=== PATIENT | female | born 2000 | race Caucasian/White ===

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

== ENCOUNTER → 2021-01-04 10:42 | Outpatient (BNVA) | payer OTHER, SELFPAY | PROVIDERS: PCP Family Medicine; Visit Provider Surgery | DX: Z20.822 Contact with and (suspected) exposure to COVID-19 (principal); K81.1 Chronic cholecystitis; R10.11 Right upper quadrant pain | CPT/HCPCS: 87635 ==

== ENCOUNTER 2021-01-09 09:16 | Day surgery (SDC) | payer MEDICAID, SELFPAY ==
[2021-01-08 11:57] VITALS: BMI 31.9
[2021-01-09] VITALS (7 sets, daily range): BP systolic 117–151; BP diastolic 73–99; PULSE 76–101; RESP 16–20; TEMP 36.1–36.8; O2SAT 97–100
--- NOTE | 2021-01-09 09:29 | W.PM.OPSUD ---
Surgery/Procedure H&P Update DATE OF PROCEDURE: January 09, 2021 DATE H&P PERFORMED: 01/01/21 H&P UPDATE INFORMATION: I have reviewed H&P completed within last 30 days, I have examined patient prior to procedure and No changes to prior documentation PREOP DIAGNOSIS: upper gi symptoms PLANNED PROCEDURE: Operation Date: 01/09/21 13:00 Proposed Procedures p Laparoscopic Cholecystectomy [id number] 10412 R10.11 K81.1(Not Applicable) - Sathya Arias MD s EGD(Not Applicable) - Sathya Arias MD
[2021-01-09 09:35] LABS: OR HCG Qualitative Urine Negative (Negative)
--- NOTE | 2021-01-09 10:06 | P.ANESASSM_ITS ---
Pre-Anesthetic Assessment Pre-Anesthetic Assessment: Height/Weight: Height 1.63 m Weight 84.368 kg Temp Pulse Resp BP Pulse Ox 98.2 F 82 18 118/73 98 01/09/21 09:41 01/09/21 09:41 01/09/21 09:41 01/09/21 09:41 01/09/21 09:41 Preop Diagnosis: upper gi symptoms Proposed Procedure: Operation Date: 01/09/21 13:00 Proposed Procedures p Laparoscopic Cholecystectomy 70188 [id number] R10.11 K81.1(Not Applicable) - Sathya Arias MD s EGD(Not Applicable) - Sathya Arias MD Was Beta Savita taken within 24 hours: N/A Was Clonidine taken within 24 hours: N/A Social: Social History: Tobacco and No alcohol Exam: Pre-Anes Outpt Exam: alert, oriented x 3, clear to auscultation bilaterally and regular rate & rhythm Airway: Submandibular: WNL Cervical ROM: WNL MP: 2 Dentition: Full Pulmonary: Pulmonary: Asthma Musc/skel: Musc/skel: Lower Back Pain Neuropsych: Neuropsych: Anxiety and Depression Anesthetic Plan: ASA status: 2 Anesthesia: General Risk of > 500 ml blood loss (7ml/kg in children): No PFSH Anesthesia PFSH: Medical History Asthma Surgical History (Updated 01/09/21 @ 09:42 by Sathya Arias MD) H/O esophagogastroduodenoscopy (01/09/21) History of appendectomy History of tonsillectomy Status post laparoscopic cholecystectomy (01/09/21) Family History Father Cancer Unknown Mother Hypertension Denies family history of CAD (coronary artery disease) Clotting disorder Dementia Hyperlipidemia Chronic kidney disease (CKD) Bleeding disorder Stroke Social History Smoking and tobacco status: current every day smoker (uses a vape pen) e- cigarettes Current gender identity: Female Female Reproductive History: Date of last menstrual period: 10/18/20 Data Anesthesia Other Labs: Laboratory Results - last 48 hr 01/09/21 09:29 Urine HCG, Qual Negative Cardiac Studies: No Data to Display
--- NOTE | 2021-01-09 10:13 | P.ANESASSM_ITS ---
Pre-Anesthetic Assessment Pre-Anesthetic Assessment: Height/Weight: Height 1.63 m Weight 84.368 kg Temp Pulse Resp BP Pulse Ox 98.2 F 82 18 118/73 98 01/09/21 09:41 01/09/21 09:41 01/09/21 09:41 01/09/21 09:41 01/09/21 09:41 Preop Diagnosis: upper gi symptoms Proposed Procedure: Operation Date: 01/09/21 13:00 Proposed Procedures p Laparoscopic Cholecystectomy [id number] R10.11 K81.1(Not Applicable) - Sathya Arias MD s EGD(Not Applicable) - Sathya Arias MD Was Beta Savita taken within 24 hours: N/A Was Clonidine taken within 24 hours: N/A Social: Social History: No alcohol and No tobacco Packs per day: Vaps Exam: Pre-Anes Outpt Exam: alert, oriented x 3, clear to auscultation bila terally and regular rate & rhythm Airway: Submandibular: WNL Cervical ROM: WNL MP: 2 Dentition: Full History/ROS: No significant history except as noted and No significant complaints Pulmonary: Pulmonary: Asthma CV/HEM: CV/HEM: None reported : : None reported Hepatic: Hepatic: None reported GI: GI: GERD Metabolic: Metabolic: None reported Musc/skel: Musc/skel: None reported Neuropsych: Neuropsych: None reported Anesthetic Plan: ASA status: 2 Anesthesia: Anesthesia Evaluation and General Risk of > 500 ml blood loss (7ml/kg in children): No PFSH Anesthesia PFSH: Medical History Asthma Surgical History (Updated 01/09/21 @ 09:42 by Sathya Arias MD) H/O esophagogastroduodenoscopy (01/09/21) History of appendectomy History of tonsillectomy Status post laparoscopic cholecystectomy (01/09/21) Family History Father Cancer Unknown Mother Hypertension Denies family history of CAD (coronary artery disease) Clotting disorder Dementia Hyperlipidemia Chronic kidney disease (CKD) Bleeding disorder Stroke Social History Smoking and tobacco status: current every day smoker (uses a vape pen) e- cigarettes Current gender identity: Female Female Reproductive History: Date of last menstrual period: 10/18/20 Data Anesthesia Other Labs: Laboratory Results - last 48 hr 01/09/21 09:29 Urine HCG, Qual Negative Cardiac Studies: No Data to Display
[2021-01-09] MEDS: sodium chloride 0.9% 1,000 ML 30 ML IV (10:23)
[2021-01-09] MEDS: diphenhydrAMINE 50 mg/mL SDV 1mL 12.5 MG IVP (10:40)
[2021-01-09] MEDS: levofloxacin-dextrose 5 % 500 MG/100 ML PREMIX 100 MG IV (10:40)
[2021-01-09] MEDS: scopolamine 1.5 Patch 1 PATCH TRANSDERMA (10:40)
[2021-01-09] MEDS: ondansetron 2 mg/ML SDV 2 mL 4 MG IVP ×3 (10:45→12:35)
--- NOTE | 2021-01-09 11:30 | PM.OP ---
Operative Report Date of procedure: January 09, 2021 Pre-op Diagnosis: Chronic cholecystitis Post-op Diagnosis: Chronic cholecystitis Normal EGD Procedure Done: Esophagogastroduodenoscopy without biopsy Laparoscopic cholecystectomy Specimens removed/disposition: Gallbladder Surgeon: Sathya Arias Anesthesia: General Condition: stable Disposition: PACU Procedure: The patient was taken to the operating room and placed in supine position under general anesthesia and a bite block was placed. A gastroscope was introduced and advanced up to second portion of the duodenum and slowly withdrawn. Duodenum second portion: Normal Duodenal bulb: Normal Stomach Fundus: Normal body: Normal Antrum: Normal Pylorus: Normal Esophagus GE junction: Normal at 40 cm Rest of esophagus: Normal After the antibiotic had been administered, the abdomen was prepped and draped in a sterile manner. Using a #15 blade, a 1 centimeter infraumbilical curvilinear incision was made and using an open Bro technique the peritoneal cavity was entered. A 10 millimeter port was placed and 15 millimeters of pneumoperitoneum was created. A 10 millimeter, 30 degrees scope was then introduced. Three 5 millimeter ports were placed in the epigastric, midclavicular and the anterior axillary line two fingerbreadths below the costal margin on the right side under the direct visualization. Ratcheted forceps were introduced into the lateral most port and was used to retract the fundus of the gallbladder cephalad and using forceps the infundibulum of the gallbladder was retracted laterally. The stomach was adherent to the body of the gallbladder and this was taken down using electrocautery. Using L-hook cautery the peritoneum overlying the Calot's triangle was opened medially and laterally until the cystic duct and the cystic artery were skeletonized. Dissection was carried along the body of the gallbladder and after ensuring critical view of safety, 4 clips applied on the cystic duct and 3 clips applied on the cystic artery and cut leaving, 3 clips on the remaining portion of the duct and 2 clips on the remaining portion of the artery. The rest of the gallbladder was dissected off the liver using L-hook cautery. There was no bleeding or bile leaking noted from the gallbladder fossa and the clips appeared to be in place. An EndoCatch bag was introduced to remove the gallbladder. All the ports were removed under direct visualization and there was no bleeding noted from the port sites. The fascia of the umbilicus was closed using [id number] 0 Vicryl sutures and the subcutaneous tissue was approximated using 3-0 Vicryl sutures. The skin at all four ports were closed using 4-0 Monocryl and Dermabond. A total of 10 millimeters of 0.5% Marcaine was infiltrated around the port sites. The patient was stable throughout the procedure.
[2021-01-09] MEDS: fentaNYL 50 mcg/mL INJ 2mL IVP ×2 (11:55→12:00)
[2021-01-09] MEDS: diphenhydrAMINE 50 mg/mL SDV 1mL (12:54)
--- NOTE | 2021-01-09 14:02 | ANE.PACU2 ---
Inpatient post-anesthesia follow up: Airway intact: Yes Vital signs: Temperature 98.0 F Pulse Rate 80 Respiratory Rate 16 Blood Pressure 132/77 Pulse Oximetry 100 Oxygen Delivery Me thod Room Air Oxygen Flow Rate Fraction of Inspir ed Oxygen Hydration adequate: Yes Nausea and vomiting: Yes Pain level: 2 Mental status: Baseline
== END 2021-01-09 13:20 | disposition home or self-care (01) ==
PROVIDERS: Anesthesiology; PCP Family Medicine; Visit Provider Surgery
PROC: 0FT44ZZ Resection of Gallbladder, Percutaneous Endoscopic Approach (ICD-10-PCS; CPT 47562; principal; 2021-01-09 12:50)
PROC: 0DJ08ZZ Inspection of Upper Intestinal Tract, Via Natural or Artificial Opening Endoscopic (ICD-10-PCS; CPT 43235; 2021-01-09 12:50)
DX: K81.1 Chronic cholecystitis (principal); J45.909 Unspecified asthma, uncomplicated
CPT/HCPCS: 43235; 47562; 81025; 84703; 88304; 96374; 96375; J1100; J1200; J1956; J2405; J2704; J2710; J3010; J3490; J7030

== ENCOUNTER 2021-01-11 08:53 | Emergency (ER) | payer MEDICAID, SELFPAY ==
[2021-01-11 08:59] VITALS: BP 118/81; PULSE 76; RESP 18; TEMP 36.8; O2SAT 100; BMI 32.1
--- NOTE | 2021-01-11 09:14 | ECG_ITS ---
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
--- NOTE | 2021-01-11 09:18 | ED_ITS ---
HPI - General Adult General: Chief complaint: General Medical Stated complaint: CP, Trouble breathing & urinating, recent surgery Time Seen by Provider: 01/11/21 09:02 History of Present Illness: HPI narrative: 19-year-old female presents to the emergency room complaining of abdominal pain and discomfort. She is having some nausea and some moderate incisional pain. She has had some mild dysuria she not had any fever. No vomiting or diarrhea but has been very nauseous. She has some pain in the right upper quadrant radiating to the right shoulder. Onset (ago): day(s) Location: abdomen Radiation: other (Right shoulder) Severity: mild Pain Consistency: constant Relieving factors: none Exacerbating factors: none Associated symptoms: Reports decreased appetite; Deny chest pain, confusion, cough, diaphoresis, dyspnea, fevers/chills, headache(s), malaise, nausea, rash, palpitations, seizures, short of breath, syncope, vomiting or weakness Treatments prior to arrival: none Review of Systems Const: Denies: malaise or diaphoresis ENMT: Denies: throat pain, ear or mastoid pain, nasal discharge or nasal congestion Card: Denies: chest pain, palpitations or syncope Resp: Denies: dyspnea GI: Denies: nausea or vomiting : Denies: flank pain, difficulty voiding, dysuria, urinary frequency or urinary urgency Skin/Breast: Denies: rash Neuro: Denies: headache(s) or confusion [facility], [facility] ED PFSH: Medical History Asthma Surgical History H/O esophagogastroduodenoscopy (01/09/21) History of appendectomy History of tonsillectomy Status post laparoscopic cholecystectomy (01/09/21) Family History Father Cancer Unknown Mother Hypertension Denies family history of CAD (coronary artery disease) Clotting disorder Dementia Hyperlipidemia Chronic kidney disease (CKD) Bleeding disorder Stroke Social History Smoking and tobacco status: current every day smoker (uses a vape pen) e- cigarettes Current gender identity: Female Female Reproductive History: Date of last menstrual period: 10/18/20 Physical Exam Const: COMMON NORMALS: no acute distress GENERAL APPEARANCE: cooperative and comfortable ORIENTATION/CONSCIOUSNESS: Yes awake, Yes oriented to person, Yes oriented to place and Yes oriented to time HENMT: COMMON NORMALS: normocephalic, atraumatic and hearing grossly normal bilaterally HEAD & SCALP: normocephalic and atraumatic Neck/C-Spine: COMMON NORMALS: no JVD Resp: COMMON NORMALS: normal respiratory effort, No retractions, No use of accessory muscles and clear to auscultation bilaterally AUSCULTATION: clear to auscultation bilaterally Cardio: COMMON NORMALS: no JVD, regular rate, regular rhythm and No murmurs present (Cardio) RATE: regular rate RHYTHM: regular rhythm GI: COMMON NORMALS: Soft to palpation and No hepatosplenomegaly present AUSCULTATION: Yes normoactive bowel sounds PALPATION: Yes Soft to palpation, No Tenderness to palpation present (GI), No Guarding due to palpation present (GI) and Yes No hepatosplenomegaly present Extremity: COMMON NORMALS: normal to inspection, capillary refill normal, no clubbing, cyanosis or edema, no calf tenderness and no pedal edema Neuro: SENSORIUM/ORIENTATION: Yes oriented to person, Yes oriented to place and Yes oriented to time Skin: COMMON NORMALS: no rashes or lesions noted GENERAL SKIN EXAM: no rashes or lesions noted Course Vital Signs: Vital signs: Vital Signs Temperature 98.3 F 01/11/21 08:59 Pulse Rate 68 01/11/21 11:40 Respiratory Rate 14 01/11/21 11:40 Blood Pressure 113/58 01/11/21 11:40 Pulse Oximetry 100 01/11/21 11:40 MDM - General Adult MDM Narrative: Medical decision making narrative: Believe the patient is having symptoms largely related to her surgery some food probably gas trapped in the abdomen yet some of it may be postcholecystectomy syndrome she has no peritoneal signs she does have a mild cystitis we will discharge her home clear liquid diet use pain medications nausea medications previously prescribed started on ciprofloxacin for her cystitis follow-up with Dr. Arias within the next week cold discussed Dr. Arias as well. Lab Data: Labs: Lab Results 01/11/21 01/11/21 01/11/21 09:38 09:38 09:38 WBC 10.0 10^3/uL 10^3 /uL (4.5-13.0) RBC 4.61 10^6/uL 10^6 /uL (4.1-5.3) Hgb 13.2 g/dL g/dL (11.5-15.3) Hct 40.0 % % (37.0-47.0) MCV 86.8 fl fl (81-99) MCH 28.6 pg pg (28.0-34.0) MCHC 33.0 g/dL g/dL (30.0-36.0) RDW 12.0 % L % (12.1-15.1) Plt Count 202 10^3/cmm 10^3 /cmm (130-400) MPV 11.5 fL H fL (7.4-10.4) Neut % (Auto) 61.5 % % Lymph % (Auto) 32.9 % % Jerome % (Auto) 4.6 % % Eos % (Auto) 0.5 % % Baso % (Auto) 0.3 % % Neut # (Auto) 6.12 10^3/uL 10^3 /uL (1.8-8.0) Lymph # (Auto) 3.3 10^3/uL 10^3/ uL (1.5-6.5) Jerome # (Auto) 0.5 10^3/uL 10^3/ uL (0.2-0.9) Eos # (Auto) 0.1 10^3/uL 10^3/ uL (0.0-0.8) Baso # (Auto) 0.0 10^3/uL 10^3/ uL (0.0-0.1) Nucleated RBC % (a uto) 0 % % Nucleated RBCs # 0.0 /100WBC /100W BC Sodium 139 mmol/L mmol/L (136-145) Potassium 3.8 mmol/L mmol/L (3.5-5.1) Chloride 103 mmol/L mmol/L (98-107) Carbon Dioxide 26 mmol/L mmol/L (22-29) Anion Gap 13.8 (5-19) BUN 8 mg/dL mg/dL (6-20) Creatinine 0.6 mg/dL mg/dL (0.5-0.9) GFR Calculation 128.8 mL/min mL/m in (90-130) Glucose 77 mg/dL mg/dL (65-115) Calculated Osmolal ity 285 mOsm/kg mOsm/ kg (285-295) Lactic Acid 1.1 mmol/L mmol/L (0.5-2.2) Calcium 9.2 mg/dL mg/dL (8.5-10.5) Total Bilirubin 0.7 mg/dL mg/dL (0.15-1.2) AST 33 U/L H U/L (0-32) ALT 46 U/L H U/L (0-33) Alkaline Phosphata se 104 IU/L IU/L (35-105) Total Protein 7.3 g/dL g/dL (6.6-8.7) Albumin 4.3 g/dL g/dL (3.5-5.2) Globulin 3.0 g/dL g/dL (1.3-4.6) Lipase 16 U/L U/L (13-60) Urine Color Urine Appearance Urine pH Ur Specific Gravit y Urine Protein Urine Glucose (UA) Urine Ketones Urine Blood Urine Nitrate Urine Bilirubin Urine Urobilinogen Ur Leukocyte Nan [place]se Urine RBC Urine WBC Ur Squamous Epith Cells Amorphous Sediment Urine Bacteria Urine Mucus 01/11/21 09:38 WBC RBC Hgb Hct MCV MCH MCHC RDW Plt Count MPV Neut % (Auto) Lymph % (Auto) Jerome % (Auto) Eos % (Auto) Baso % (Auto) Neut # (Auto) Lymph # (Auto) Jerome # (Auto) Eos # (Auto) Baso # (Auto) Nucleated RBC % (a uto) Nucleated RBCs # Sodium Potassium Chloride Carbon Dioxide Anion Gap BUN Creatinine GFR Calculation Glucose Calculated Osmolal ity Lactic Acid Calcium Total Bilirubin AST ALT Alkaline Phosphata se Total Protein Albumin Globulin Lipase Urine Color Yellow (Yellow) Urine Appearance Hazy A (CLEAR) Urine pH 5 (5-7) Ur Specific Gravit y 1.015 (1.005-1.030) Urine Protein Neg (Negative) Urine Glucose (UA) Norm (Normal) Urine Ketones Negative (Negative) Urine Blood Neg (Negative) Urine Nitrate Negative (Negative) Urine Bilirubin Neg (Negative) Urine Urobilinogen 1 mg/dL H mg/dL (Negative) Ur Leukocyte [place] 1+ H (Negative) Urine RBC 0-4 /hpf H /hpf (0-2) Urine WBC 15-25 /hpf H /hpf (0-5) Ur Squamous Epith Cells 25-40 /hpf H /hpf (0-5) Amorphous Sediment Not Reportable Urine Bacteria 2+ /hpf H /hpf (NONE) Urine Mucus Trace /hpf /hpf Discharge Plan Discharge Patient Disposition: Home Clinical Impression: Post-cholecystectomy syndrome, Cystitis Condition: Stable Prescriptions: New ciprofloxacin HCl 500 mg tablet 500 mg PO BID Qty: 14 RF: 0 No Action albuterol sulfate [Ventolin HFA] 90 mcg/actuation HFA aerosol inhaler 2 puff inhalation Q6H PRN (Reason: shortness of breath or wheezing) Qty: 6.7 RF: 0 buspirone 5 mg tablet 5 mg PO TID Qty: 90 RF: 0 tizanidine 2 mg tablet 2 mg PO BID PRN (Reason: muscle spasticity) Qty: 60 RF: 0 sertraline 50 mg tablet 50 mg PO DAILY Qty: 30 RF: 0 acetaminophen [Tylenol] 325 mg Tablet 325 - 650 mg PO QID PRN (Reason: Pain) RF: 0 Zofran 4 mg tablet 4 mg PO Q6H PRN (Reason: nausea and vomiting) Qty: 20 RF: 0 Colace 100 mg capsule 100 mg PO BID Qty: 30 RF: 0 hydrocodone-acetaminophen 5-325 mg tablet 1 tab PO Q6H PRN (Reason: pain) Qty: 20 RF: 0 Discharge Orders: Discharge ED (Routine); Ordered 01/11/21 Ordered By: Clayton Lazaro Referrals: Andreia Ospina DO [Primary Care Provider] - Discharge Diet: Clear Liquid Discharge Activity: Limit activity as instructed Patient Instructions: Opioid Safety Coding Level of Care Code ED Car Seat [employer] for Gegeg Turner
[2021-01-11 09:41] VITALS: BP 152/80; PULSE 77; RESP 14; O2SAT 100
[2021-01-11 09:53] LABS: Basophils % 0.3 %; Eosinophils # 0.1 10^3/uL (0.0-0.8); Eosinophils % 0.5 %; Hemoglobin 13.2 g/dL (11.5-15.3); Lymphocytes # 3.3 10^3/uL (1.5-6.5); Lymphocytes % 32.9 %; Mean Corpuscular Hemoglobin 28.6 pg (28.0-34.0); Mean Corpuscular Volume 86.8 fl (81-99); Mean Platelet Volume 11.5 fL (7.4-10.4); Monocytes # 0.5 10^3/uL (0.2-0.9); Monocytes % 4.6 %; Neutrophils # 6.12 10^3/uL (1.8-8.0); Neutrophils % 61.5 %; Nucleated Red Blood Cells % 0 %; Platelet Count 202 10^3/cmm (130-400); Red Blood Count 4.61 10^6/uL (4.1-5.3)
[2021-01-11 10:04] LABS: Alanine Aminotransferase 46 U/L (0-33); Albumin Level 4.3 g/dL (3.5-5.2); Alkaline Phosphatase 104 IU/L (35-105); Anion Gap 13.8 (5-19); Aspartate Amino Transferase 33 U/L (0-32); Blood Urea Nitrogen 8 mg/dL (6-20); Calcium 9.2 mg/dL (8.5-10.5); Carbon Dioxide 26 mmol/L (22-29); Chloride 103 mmol/L (98-107); Glomerular Filtration Rate 128.8 mL/min (90-130); Glucose 77 mg/dL (65-115); Lipase 16 U/L (13-60); Osmolality Calculated 285 mOsm/kg (285-295); Potassium 3.8 mmol/L (3.5-5.1); Sodium 139 mmol/L (136-145); Total Bilirubin 0.7 mg/dL (0.15-1.2); Total Protein 7.3 g/dL (6.6-8.7)
[2021-01-11 10:05] LABS: Lactic Sepsis W/Reflex 1.1 mmol/L (0.5-2.2)
[2021-01-11 10:24] LABS: Specific Gravity, Urine 1.015 (1.005-1.030); Urine Appearance Hazy (CLEAR); Urine Color Yellow (Yellow); pH Urine 5 (5-7)
[2021-01-11 10:25] LABS: Add Urine Microscopic? YES; Bilirubin Urine Neg (Negative); Blood Urine Neg (Negative); Glucose Urine UA Norm (Normal); Ketones Urine Negative (Negative); Leukocyte Esterase Urine 1+ (Negative); Nitrate Urine Negative (Negative); Protein Urine Neg (Negative); Urobilinogen Urine 1 mg/dL (Negative)
[2021-01-11 10:26] LABS: RBC Urine 0-4 /hpf (0-2); WBC Urine 15-25 /hpf (0-5)
[2021-01-11 10:27] LABS: Bacteria Urine 2+ /hpf; Squamous Epithelial Cell Urine 25-40 /hpf (0-5)
[2021-01-11 10:28] LABS: Add Urine Culture? No; Mucus Urine TRACE /hpf
[2021-01-11 11:12] VITALS: RESP 16
[2021-01-11] MEDS: morphine 4 mg/mL SDV 1 mL IVP (11:12)
[2021-01-11] MEDS: ondansetron 2 mg/ML SDV 2 mL 4 MG IVP (11:13)
[2021-01-11 11:40] VITALS: BP 113/58; PULSE 68; RESP 14; O2SAT 100
== END 2021-01-11 11:40 | disposition home or self-care (01) ==
PROVIDERS: Emergency Provider Family Medicine; PCP Family Medicine
DX: K91.5 Postcholecystectomy syndrome (principal); N30.90 Cystitis, unspecified without hematuria; F17.290 Nicotine dependence, other tobacco product, uncomplicated
CPT/HCPCS: 80053; 81001; 83605; 83690; 85025; 93005; 96374; 96375; 99283; J2270; J2405

== ENCOUNTER → 2021-01-13 13:27 | Outpatient (BNVA) | payer SELFPAY | PROVIDERS: PCP Family Medicine; Visit Provider Nurse Practitioner | DX: R39.9 Unspecified symptoms and signs involving the genitourinary system (principal) | CPT/HCPCS: 81000 ==

== ENCOUNTER → 2021-01-21 09:01 | Outpatient (BNVA) | payer MEDICAID, SELFPAY | PROVIDERS: PCP Family Medicine; Visit Provider Nurse Practitioner Women's Health | DX: N92.6 Irregular menstruation, unspecified (principal) | CPT/HCPCS: 81025 ==

== ENCOUNTER → 2021-02-06 10:15 | Outpatient (BNVA) | payer SELFPAY | PROVIDERS: PCP Family Medicine; Visit Provider Nurse Practitioner Women's Health | DX: Z34.80 Encounter for supervision of other normal pregnancy, unspecified trimester (principal) | CPT/HCPCS: 81000 ==

== ENCOUNTER 2021-02-18 12:56 | Outpatient (CLI) | payer MEDICAID, SELFPAY ==
[2021-02-18 13:29] LABS: Basophils % 0.3 %; Eosinophils # 0.1 10^3/uL (0.0-0.8); Eosinophils % 0.8 %; Hematocrit 39.2 % (37.0-47.0); Hemoglobin 12.8 g/dL (11.5-15.3); Lymphocytes # 2.3 10^3/uL (1.5-6.5); Lymphocytes % 21.2 %; Mean Corpuscular HGB Conc 32.7 g/dL (30.0-36.0); Mean Corpuscular Hemoglobin 27.9 pg (28.0-34.0); Mean Corpuscular Volume 85.6 fl (81-99); Mean Platelet Volume 11.3 fL (7.4-10.4); Monocytes # 0.5 10^3/uL (0.2-0.9); Monocytes % 4.7 %; Neutrophils # 7.92 10^3/uL (1.8-8.0); Neutrophils % 72.6 %; Nucleated Red Blood Cells % 0 %; Platelet Count 217 10^3/cmm (130-400); Red Blood Count 4.58 10^6/uL (4.1-5.3); Red Cell Distribution Width 11.9 % (12.1-15.1); White Blood Count 10.9 10^3/uL (4.5-13.0)
[2021-02-18 14:03] LABS: Rubella IgG 112.7 IU/mL (0.0-10.0); Thyroid Stimulating Hormone 0.82 uIU/mL (0.27-4.20)
[2021-02-18 14:04] LABS: Hepatitis B Surface Antigen Non-Reactive (Nonreactive); Hepatitis C Virus Antibody Non-Reactive (Nonreactive)
== END 2021-02-18 12:57 | disposition home or self-care (01) ==
LOC: LAB 13:03
PROVIDERS: PCP Family Medicine; Visit Provider Obstetrics & Gynecology
DX: Z34.01 Encounter for supervision of normal first pregnancy, first trimester (principal)
CPT/HCPCS: 36415; 80307; 81000; 84443; 85025; 86762; 86803; 86850; 86900; 87086; 87340

== ENCOUNTER 2021-02-22 21:57 | Emergency (ER) | payer MEDICAID, SELFPAY ==
[2021-02-22 22:02] VITALS: BP 141/83; PULSE 98; RESP 18; TEMP 36.5; O2SAT 98; BMI 31.7
--- NOTE | 2021-02-22 23:35 | W.ED.PREGNAN ---
Documented by User: NUNO Barraza 02/23/21 02:10 HPI - General: Chief complaint: Vaginal Bleeding Stated complaint: 10 weeks an bleeding Time Seen by Provider: 02/22/21 23:35 History of Present Illness: HPI Narrative: 20-year-old female comes in today with complaints of bleeding. Patient reports that she is but enough to soil 1 pad. Patient denies any significant abdominal or pelvic discomfort. Patient appears well. Patient appears no acute distress. Patient is approximately 10 weeks . Patient denies any chronic medical problems. Review of the record does note that patient has a Rh- status. Date of Last Menstrual Period: 12/11/20 Review of Systems General: Reports: 10 or more systems reviewed and unremarkable except in HPI and below : Reports: vaginal bleeding and other PFSH ED PFSH: Medical History Asthma Generalized anxiety disorder with panic attacks No pertinent past medical history neghx: htn,dm,thyroid,dvt/pe PCP: Dr. Ospina Surgical History H/O esophagogastroduodenoscopy (01/09/21) History of appendectomy History of tonsillectomy Status post laparoscopic cholecystectomy (01/09/21) Family History Mother Hypertension Grandmother Breast cancer Paternal--dx age unknown Denies family history of Colon cancer Ovarian cancer Diabetes Hypercholesteremia Uterine cancer Thyroid disease Stroke Female Reproductive History: Date of last menstrual period: 12/11/20 Physical Exam Const: COMMON NORMALS: no acute distress and patient oriented x3 GENERAL APPEARANCE: cooperative HENMT: COMMON NORMALS: normocephalic and Normal external nose present HEAD & SCALP: normal to inspection and normocephalic NOSE: Normal external nose present MOUTH: Normal oral and palatal mucosa present THROAT: posterior oropharynx normal Eye: GENERAL EYE: appearance normal, both eyes and all related structures Neck/C-Spine: COMMON NORMALS: full ROM Lymph: LYMPHATIC: no lymphadenopathy noted Chest: COMMONS NORMALS: normal inspection of the chest Resp: COMMON NORMALS: normal respiratory effort EFFORT & INSPECTION: Yes able to speak in complete sentences Cardio: COMMON NORMALS: regular rate and regular rhythm RATE: regular rate RHYTHM: regular rhythm GI: COMMON NORMALS: non-tender : COMMON NORMALS: Yes no CVA tenderness BLADDER/KIDNEY EXAM: Yes no CVA tenderness Back/Pelvis: COMMON NORMALS: no CVA tenderness and thoracic and lumbar spine normal to inspection Extremity: COMMON NORMALS: normal to inspection Neuro: COMMON NORMALS: patient oriented x3 and moves all extremities Psych: COMMON NORMALS: mental status grossly normal and cooperative Skin: COMMON NORMALS: no rashes or lesions noted GENERAL SKIN EXAM: no rashes or lesions noted Course Vital Signs: Vital signs: Vital Signs Temperature 98 F 02/23/21 03:59 Pulse Rate 79 02/23/21 03:59 Respiratory Rate 18 02/23/21 03:59 Blood Pressure 130/66 02/23/21 03:59 Pulse Oximetry 100 02/23/21 03:59 MDM - OB/Uterine Contractions MDM Narrative: Medical decision making narrative: Patient came in tonight with concerns of bleeding. Patient is 10 weeks . And reported bleeding that affected only 1 pad. Patient reports bleeding is stopped since arriving to the ER. On exam patient appears well. Patient appears no acute distress. Differential diagnosis includes but not limited to threatened miscarriage, subchorionic bleed, vaginal bleeding in first trimester. Reviewed exam with patient with recommendations for treatment. We will give patient RhoGam due to her subchorionic bleed that was noted on the ultrasound. Hemoglobin hematocrit was unremarkable. Recommended patient follow-up with CLINICAL RESEARCH PHYSICIAN on Thursday for further evaluation and treatment. Patient reported understanding and agreed to plan. Recommended patient have pelvic rest until after follow-up with CLINICAL RESEARCH PHYSICIAN. Lab Data: Labs: Lab Results 02/22/21 02/23/21 02/23/21 23:49 01:40 01:40 WBC 13.9 10^3/uL H 10 ^3/uL (4.5-13.0) RBC 4.33 10^6/uL 10^6 /uL (4.1-5.3) Hgb 12.4 g/dL g/dL (11.5-15.3) Hct 36.5 % L % (37.0-47.0) MCV 84.3 fl fl (81-99) MCH 28.6 pg pg (28.0-34.0) MCHC 34.0 g/dL g/dL (30.0-36.0) RDW 12.0 % L % (12.1-15.1) Plt Count 222 10^3/cmm 10^3 /cmm (130-400) MPV 11.6 fL H fL (7.4-10.4) Neut % (Auto) 71.7 % % Lymph % (Auto) 22.6 % % [place] % (Auto) 4.7 % % Eos % (Auto) 0.6 % % Baso % (Auto) 0.1 % % Neut # (Auto) 9.99 10^3/uL H 10 ^3/uL (1.8-8.0) Lymph # (Auto) 3.2 10^3/uL 10^3/ uL (1.5-6.5) [place] # (Auto) 0.7 10^3/uL 10^3/ uL (0.2-0.9) Eos # (Auto) 0.1 10^3/uL 10^3/ uL (0.0-0.8) Baso # (Auto) 0.0 10^3/uL 10^3/ uL (0.0-0.1) Nucleated RBC % (a uto) 0 % % Nucleated RBCs # 0.0 /100WBC /100W BC Sodium 133 mmol/L L mmol /L (136-145) Potassium 3.5 mmol/L mmol/L (3.5-5.1) Chloride 100 mmol/L mmol/L (98-107) Carbon Dioxide 23 mmol/L mmol/L (22-29) Anion Gap 13.5 (5-19) BUN 10 mg/dL mg/dL (6-20) Creatinine 0.4 mg/dL L mg/dL (0.5-0.9) GFR Calculation 205.6 mL/min H mL /min (90-130) Glucose 85 mg/dL mg/dL (65-115) Calculated Osmolal ity 274 mOsm/kg L mOs m/kg (285-295) Calcium 9.2 mg/dL mg/dL (8.5-10.5) Total Bilirubin 0.6 mg/dL mg/dL (0.15-1.2) AST 12 U/L U/L (0-32) ALT 8 U/L U/L (0-33) Alkaline Phosphata se 80 IU/L IU/L (35-105) Total Protein 6.9 g/dL g/dL (6.6-8.7) Albumin 4.0 g/dL g/dL (3.5-5.2) Globulin 2.9 g/dL g/dL (1.3-4.6) Ser , [place] 685[address].00 mIU/mL m IU/mL Urine Color Yellow (Yellow) Urine Appearance Clear (CLEAR) Urine pH 5 (5-7) Ur Specific Gravit y 1.025 (1.005-1.030) Urine Protein Neg (Negative) Urine Glucose (UA) Norm (Normal) Urine Ketones Negative (Negative) Urine Blood 3+ H (Negative) Urine Nitrate Negative (Negative) Urine Bilirubin Neg (Negative) Urine Urobilinogen Norm mg/dL mg/dL (Negative) Ur Leukocyte Nan ase Negative (Negative) Urine RBC 5-10 /hpf H /hpf (0-2) Urine WBC 0-4 /hpf H /hpf (0-5) Ur Squamous Epith Cells 15-25 /hpf H /hpf (0-5) Calcium Oxalate Cr ystal 5-10 /hpf H /hpf Amorphous Sediment Not Reportable Urine Bacteria 1+ /hpf H /hpf (NONE) Urine Mucus 2+ /hpf /hpf Blood Type Rho(D) Type Antibody Screen 02/23/21 01:40 WBC RBC Hgb Hct MCV MCH MCHC RDW Plt Count MPV Neut % (Auto) Lymph % (Auto) [place] % (Auto) Eos % (Auto) Baso % (Auto) Neut # (Auto) Lymph # (Auto) [place] # (Auto) Eos # (Auto) Baso # (Auto) Nucleated RBC % (a uto) Nucleated RBCs # Sodium Potassium Chloride Carbon Dioxide Anion Gap BUN Creatinine GFR Calculation Glucose Calculated Osmolal ity Calcium Total Bilirubin AST ALT Alkaline Phosphata se Total Protein Albumin Globulin Ser , Cassia i-Qnt Urine Color Urine Appearance Urine pH Ur Specific Gravit y Urine Protein Urine Glucose (UA) Urine Ketones Urine Blood Urine Nitrate Urine Bilirubin Urine Urobilinogen Ur Leukocyte Nan ase Urine RBC Urine WBC Ur Squamous Epith Cells Calcium Oxalate Cr ystal Amorphous Sediment Urine Bacteria Urine Mucus Blood Type B Negative Rho(D) Type Negative Antibody Screen Negative Discharge Plan Discharge Patient Disposition: Home Clinical Impression: Subchorionic hemorrhage in first trimester Qualifiers: Fetus number: single or unspecified fetus Qualified Code(s): O41.8X10 - Other specified disorders of amniotic fluid and membranes, first trimester, not applicable or unspecified Condition: Stable Prescriptions: No Action albuterol sulfate [Ventolin HFA] 90 mcg/actuation HFA aerosol inhaler 2 puff inhalation Q6H PRN (Reason: shortness of breath or wheezing) Qty: 6.7 RF: 0 buspirone 5 mg tablet 5 mg PO TID PRNRF: 0 Gummies 400 mcg-35 mg- 25 mg-5 mg tablet,chewable PO RF: 0 max (Zingiber officinalis) 250 mg capsule 250 mg PO DAILY RF: 0 Discharge Orders: Discharge ED (Routine); Ordered 02/23/21 Ordered By: Anton Quintero Referrals: Andreia Ospina DO [Primary Care Provider] - Discharge Diet: Usual diet Discharge Activity: Increase activity as tolerated Patient Instructions: Subchorionic Hemorrhage (ED), Opioid Safety Activity Restrictions/Additional Instructions: Pelvic rest. Drink plenty of fluids. Follow-up with CLINICAL RESEARCH PHYSICIAN on Thursday to schedule an appointment for follow-up. Return to the emergency department for worsening bleeding, uncontrolled pain, or fever greater than 100.4. Coding Level of Care Code ED Pipe Stress Engineer for Chg Fwd Exam Comprehensive Documented by User: Edin Wynn DO 02/23/21 04:13 HPI - General: Chief complaint: Vaginal Bleeding Stated complaint: 10 weeks an bleeding Time Seen by Provider: 02/22/21 23:35 PFSH ED PFSH: Medical History Asthma Generalized anxiety disorder with panic attacks No pertinent past medical history neghx: htn,dm,thyroid,dvt/pe PCP: Dr. Ospina Surgical History H/O esophagogastroduodenoscopy (01/09/21) History of appendectomy History of tonsillectomy Status post laparoscopic cholecystectomy (01/09/21) Family History Mother Hypertension Grandmother Breast cancer Paternal--dx age unknown Denies family history of Colon cancer Ovarian cancer Diabetes Hypercholesteremia Uterine cancer Thyroid disease Stroke Course Vital Signs: Vital signs: Vital Signs Temperature 98 F 02/23/21 03:59 Pulse Rate 79 02/23/21 03:59 Respiratory Rate 18 02/23/21 03:59 Blood Pressure 130/66 02/23/21 03:59 Pulse Oximetry 100 02/23/21 03:59 MDM - OB/Uterine Contractions MDM Narrative: Medical decision making narrative: This patient was originally seen by NUNO Young. I agree with his history, evaluation, and treatment. Lab Data: Labs: Lab Results 02/22/21 02/23/21 02/23/21 23:49 01:40 01:40 WBC 13.9 10^3/uL H 10 ^3/uL (4.5-13.0) RBC 4.33 10^6/uL 10^6 /uL (4.1-5.3) Hgb 12.4 g/dL g/dL (11.5-15.3) Hct 36.5 % L % (37.0-47.0) MCV 84.3 fl fl (81-99) MCH 28.6 pg pg (28.0-34.0) MCHC 34.0 g/dL g/dL (30.0-36.0) RDW 12.0 % L % (12.1-15.1) Plt Count 222 10^3/cmm 10^3 /cmm (130-400) MPV 11.6 fL H fL (7.4-10.4) Neut % (Auto) 71.7 % % Lymph % (Auto) 22.6 % % [place] % (Auto) 4.7 % % Eos % (Auto) 0.6 % % Baso % (Auto) 0.1 % % Neut # (Auto) 9.99 10^3/uL H 10 ^3/uL (1.8-8.0) Lymph # (Auto) 3.2 10^3/uL 10^3/ uL (1.5-6.5) [place] # (Auto) 0.7 10^3/uL 10^3/ uL (0.2-0.9) Eos # (Auto) 0.1 10^3/uL 10^3/ uL (0.0-0.8) Baso # (Auto) 0.0 10^3/uL 10^3/ uL (0.0-0.1) Nucleated RBC % (a uto) 0 % % Nucleated RBCs # 0.0 /100WBC /100W BC Sodium 133 mmol/L L mmol /L (136-145) Potassium 3.5 mmol/L mmol/L (3.5-5.1) Chloride 100 mmol/L mmol/L (98-107) Carbon Dioxide 23 mmol/L mmol/L (22-29) Anion Gap 13.5 (5-19) BUN 10 mg/dL mg/dL (6-20) Creatinine 0.4 mg/dL L mg/dL (0.5-0.9) GFR Calculation 205.6 mL/min H mL /min (90-130) Glucose 85 mg/dL mg/dL (65-115) Calculated Osmolal ity 274 mOsm/kg L mOs m/kg (285-295) Calcium 9.2 mg/dL mg/dL (8.5-10.5) Total Bilirubin 0.6 mg/dL mg/dL (0.15-1.2) AST 12 U/L U/L (0-32) ALT 8 U/L U/L (0-33) Alkaline Phosphata se 80 IU/L IU/L (35-105) Total Protein 6.9 g/dL g/dL (6.6-8.7) Albumin 4.0 g/dL g/dL (3.5-5.2) Globulin 2.9 g/dL g/dL (1.3-4.6) Ser , [place] i-Qnt 56686.00 mIU/mL m IU/mL Urine Color Yellow (Yellow) Urine Appearance Clear (CLEAR) Urine pH 5 (5-7) Ur Specific Gravit y 1.025 (1.005-1.030) Urine Protein Neg (Negative) Urine Glucose (UA) Norm (Normal) Urine Ketones Negative (Negative) Urine Blood 3+ H (Negative) Urine Nitrate Negative (Negative) Urine Bilirubin Neg (Negative) Urine Urobilinogen Norm mg/dL mg/dL (Negative) Ur Leukocyte [place] Negative (Negative) Urine RBC 5-10 /hpf H /hpf (0-2) Urine WBC 0-4 /hpf H /hpf (0-5) Ur Squamous Epith Cells 15-25 /hpf H /hpf (0-5) Calcium Oxalate Cr ystal 5-10 /hpf H /hpf Amorphous Sediment Not Reportable Urine Bacteria 1+ /hpf H /hpf (NONE) Urine Mucus 2+ /hpf /hpf Blood Type Rho(D) Type Antibody Screen 02/23/21 01:40 WBC RBC Hgb Hct MCV MCH MCHC RDW Plt Count MPV Neut % (Auto) Lymph % (Auto) [place] % (Auto) Eos % (Auto) Baso % (Auto) Neut # (Auto) Lymph # (Auto) [place] # (Auto) Eos # (Auto) Baso # (Auto) Nucleated RBC % (a uto) Nucleated RBCs # Sodium Potassium Chloride Carbon Dioxide Anion Gap BUN Creatinine GFR Calculation Glucose Calculated Osmolal ity Calcium Total Bilirubin AST ALT Alkaline Phosphata se Total Protein Albumin Globulin Ser , Cassia i-Qnt Urine Color Urine Appearance Urine pH Ur Specific Gravit y Urine Protein Urine Glucose (UA) Urine Ketones Urine Blood Urine Nitrate Urine Bilirubin Urine Urobilinogen Ur Leukocyte [place] Urine RBC Urine WBC Ur Squamous Epith Cells Calcium Oxalate Cr ystal Amorphous Sediment Urine Bacteria Urine Mucus Blood Type B Negative Rho(D) Type Negative Antibody Screen Negative Discharge Plan Discharge Patient Disposition: Home Clinical Impression: Subchorionic hemorrhage in first trimester Qualifiers: Fetus number: single or unspecified fetus Qualified Code(s): O41.8X10 - Other specified disorders of amniotic fluid and membranes, first trimester, not applicable or unspecified Condition: Stable Prescriptions: No Action albuterol sulfate [Ventolin HFA] 90 mcg/actuation HFA aerosol inhaler 2 puff inhalation Q6H PRN (Reason: shortness of breath or wheezing) Qty: 6.7 RF: 0 buspirone 5 mg tablet 5 mg PO TID PRNRF: 0 Gummies 400 mcg-35 mg- 25 mg-5 mg tablet,chewable PO RF: 0 max (Zingiber officinalis) 250 mg capsule 250 mg PO DAILY RF: 0 Discharge Orders: Discharge ED (Routine); Ordered 02/23/21 Ordered By: Anton Quintero Referrals: Andreia Ospina DO [Primary Care Provider] - Discharge Diet: Usual diet Discharge Activity: Increase activity as tolerated Patient Instructions: Subchorionic Hemorrhage (ED), Opioid Safety Activity Restrictions/Additional Instructions: Pelvic rest. Drink plenty of fluids. Follow-up with CLINICAL RESEARCH PHYSICIAN on Thursday to schedule an appointment for follow-up. Return to the emergency department for worsening bleeding, uncontrolled pain, or fever greater than 100.4. Coding Level of Care Code ED Pipe Stress Engineer for Chg Fwd Exam Comprehensive
[2021-02-22 23:37] VITALS: BP 135/84; PULSE 91; RESP 17; O2SAT 100
[2021-02-22 23:53] LABS: Add Urine Microscopic? YES; Bilirubin Urine Neg (Negative); Blood Urine 3+ (Negative); Glucose Urine UA Norm (Normal); Ketones Urine Negative (Negative); Leukocyte Esterase Urine Negative (Negative); Nitrate Urine Negative (Negative); Protein Urine Neg (Negative); Specific Gravity, Urine 1.025 (1.005-1.030); Urine Appearance Clear (CLEAR); Urine Color Yellow (Yellow); Urobilinogen Urine Norm (Negative); pH Urine 5 (5-7)
[2021-02-23 00:10] LABS: Add Urine Culture? No; Bacteria Urine 1+ /hpf; Mucus Urine 2+ /hpf; Squamous Epithelial Cell Urine 15-25 /hpf (0-5); WBC Urine 0-4 /hpf (0-5)
[2021-02-23 01:53] VITALS: BP 115/83; PULSE 86; RESP 17; O2SAT 100
[2021-02-23 02:06] LABS: Basophils % 0.1 %; Eosinophils # 0.1 10^3/uL (0.0-0.8); Eosinophils % 0.6 %; Hematocrit 36.5 % (37.0-47.0); Hemoglobin 12.4 g/dL (11.5-15.3); Lymphocytes # 3.2 10^3/uL (1.5-6.5); Lymphocytes % 22.6 %; Mean Corpuscular Hemoglobin 28.6 pg (28.0-34.0); Mean Corpuscular Volume 84.3 fl (81-99); Mean Platelet Volume 11.6 fL (7.4-10.4); Monocytes # 0.7 10^3/uL (0.2-0.9); Monocytes % 4.7 %; Neutrophils # 9.99 10^3/uL (1.8-8.0); Neutrophils % 71.7 %; Nucleated Red Blood Cells % 0 %; Platelet Count 222 10^3/cmm (130-400); Red Blood Count 4.33 10^6/uL (4.1-5.3); White Blood Count 13.9 10^3/uL (4.5-13.0)
[2021-02-23 02:25] LABS: Alanine Aminotransferase 8 U/L (0-33); Alkaline Phosphatase 80 IU/L (35-105); Anion Gap 13.5 (5-19); Aspartate Amino Transferase 12 U/L (0-32); Blood Urea Nitrogen 10 mg/dL (6-20); Calcium 9.2 mg/dL (8.5-10.5); Carbon Dioxide 23 mmol/L (22-29); Chloride 100 mmol/L (98-107); Globulin 2.9 g/dL (1.3-4.6); Glomerular Filtration Rate 205.6 mL/min (90-130); Glucose 85 mg/dL (65-115); Osmolality Calculated 274 mOsm/kg (285-295); Potassium 3.5 mmol/L (3.5-5.1); Sodium 133 mmol/L (136-145); Total Bilirubin 0.6 mg/dL (0.15-1.2); Total Protein 6.9 g/dL (6.6-8.7)
[2021-02-23 03:59] VITALS: BP 130/66; PULSE 79; RESP 18; TEMP 36.6; O2SAT 100
--- NOTE | 2021-02-23 23:36 | USR_ITS ---
PROCEDURE INFORMATION: Exam: US , Transvaginal Exam date and time: 02/23/2021 11:36 PM Age: 20 years old Clinical indication: Lmp or gestational age (in weeks): 10w4d; Antepartum complications; Bleeding; ; Additional info: Vaginal bleeding, 10 weeks TECHNIQUE: Imaging protocol: Real-time transvaginal obstetrical ultrasound of the maternal pelvis with image documentation. Transvaginal imaging was used for better evaluation of the fetus, adnexa, and/or cervix. COMPARISON: US OB transvaginal [facility] 02/06/2021 10:01 AM FINDINGS: Gestation: There is a single live intrauterine . The fetus and yolk sac are morphologically normal. The normal amnion is visible. heart rate: 161 bpm Placenta: There is a small subchorionic hematoma along the distal margin of the gestational sac. BIOMETRY: Gestational age (AUA): 10 weeks 2 days by crown-rump length Estimated due date (AUA): 09/19/2021 by ultrasound MATERNAL: Uterus: Uterine contours are normal. Cervix: The cervix is long and closed. Other findings: The ovaries are not visible. US/US OB transvaginal [id number] IMPRESSION: 1. Single live intrauterine . 2. Small subchorionic hematoma. Radiation Dose CTDIVOL = (mGy): DLP = (mGy-cm)
== END 2021-02-23 04:03 | disposition home or self-care (01) ==
PROVIDERS: Emergency Provider Nurse Practitioner Family; PCP Family Medicine
DX: O41.8X10 Other specified disorders of amniotic fluid and membranes, first trimester, not applicable or unspecified (principal); Z3A.10 10 weeks gestation of pregnancy
CPT/HCPCS: 76817; 80053; 81001; 81003; 84702; 85025; 86850; 86900; 90384; 99283

== ENCOUNTER 2021-03-02 19:25 | Emergency (ER) | payer MEDICAID, SELFPAY ==
[2021-03-02 19:33] VITALS: BP 135/82; PULSE 95; RESP 18; TEMP 36.2; O2SAT 100; BMI 31.7
[2021-03-02 21:55] LABS: Basophils % 0.2 %; Eosinophils # 0.1 10^3/uL (0.0-0.8); Hematocrit 39.7 % (37.0-47.0); Hemoglobin 13.5 g/dL (11.5-15.3); Lymphocytes # 2.4 10^3/uL (1.5-6.5); Lymphocytes % 21.1 %; Mean Corpuscular Hemoglobin 28.8 pg (28.0-34.0); Mean Corpuscular Volume 84.8 fl (81-99); Mean Platelet Volume 11.3 fL (7.4-10.4); Monocytes # 0.5 10^3/uL (0.2-0.9); Monocytes % 4.7 %; Neutrophils # 8.24 10^3/uL (1.8-8.0); Neutrophils % 72.6 %; Nucleated Red Blood Cells % 0 %; Platelet Count 217 10^3/cmm (130-400); Red Blood Count 4.68 10^6/uL (4.1-5.3); Red Cell Distribution Width 12.2 % (12.1-15.1); White Blood Count 11.3 10^3/uL (4.5-13.0)
[2021-03-02 22:23] LABS: Add Urine Microscopic? NO; Charge for UA Resulting for Rev
[2021-03-02 22:24] VITALS: BP 117/74; PULSE 87; RESP 16; O2SAT 100
[2021-03-02 22:25] LABS: Alanine Aminotransferase 10 U/L (0-33); Albumin Level 4.2 g/dL (3.5-5.2); Alkaline Phosphatase 90 IU/L (35-105); Anion Gap 17.7 (5-19); Aspartate Amino Transferase 13 U/L (0-32); Blood Urea Nitrogen 8 mg/dL (6-20); Calcium 9.1 mg/dL (8.5-10.5); Carbon Dioxide 22 mmol/L (22-29); Chloride 101 mmol/L (98-107); Globulin 3.3 g/dL (1.3-4.6); Glomerular Filtration Rate 205.6 mL/min (90-130); Glucose 90 mg/dL (65-115); Osmolality Calculated 282 mOsm/kg (285-295); Potassium 3.7 mmol/L (3.5-5.1); Sodium 137 mmol/L (136-145); Total Bilirubin 0.6 mg/dL (0.15-1.2); Total Protein 7.5 g/dL (6.6-8.7)
[2021-03-02 22:28] LABS: Bilirubin Urine Neg (Negative); Blood Urine Neg (Negative); Glucose Urine UA Norm (Normal); Ketones Urine Negative (Negative); Leukocyte Esterase Urine Negative (Negative); Nitrate Urine Negative (Negative); Protein Urine Neg (Negative); Specific Gravity, Urine 1.025 (1.005-1.030); Urine Appearance Clear (CLEAR); Urine Color Yellow (Yellow); Urobilinogen Urine Norm (Negative); pH Urine 5 (5-7)
--- NOTE | 2021-03-02 23:27 | ED_ITS ---
Documented by User: NUNO Barraza 03/03/21 00:26 HPI - General: Chief complaint: OB/Uterine Contractions Stated complaint: 11 Weeks Preg-Cramps Kidneys hurt Time Seen by Provider: 03/02/21 23:27 History of Present Illness: HPI Narrative: 20-year-old female comes in today with some abdominal cramping. Patient appears well. Patient denies any vaginal bleeding. Patient is 11 weeks . Date of Last Menstrual Period: 12/11/20 Review of Systems General: Reports: 10 or more systems reviewed and unremarkable except in HPI and below : Reports: other (Abdominal cramping, 11 weeks ) PFSH ED PFSH: Medical History Asthma Generalized anxiety disorder with panic attacks No pertinent past medical history neghx: htn,dm,thyroid,dvt/pe PCP: Dr. Ospina Surgical History H/O esophagogastroduodenoscopy (01/09/21) History of appendectomy History of tonsillectomy Status post laparoscopic cholecystectomy (01/09/21) Family History Mother Hypertension Grandmother Breast cancer Paternal--dx age unknown Denies family history of Colon cancer Ovarian cancer Diabetes Hypercholesteremia Uterine cancer Thyroid disease Stroke Female Reproductive History: Date of last menstrual period: 12/11/20 Physical Exam Const: COMMON NORMALS: no acute distress and patient oriented x3 GENERAL APPEARANCE: cooperative HENMT: COMMON NORMALS: normocephalic and Normal external nose present HEAD & SCALP: normal to inspection and normocephalic NOSE: Normal external nose present MOUTH: Normal oral and palatal mucosa present Eye: GENERAL EYE: appearance normal, both eyes and all related structures Neck/C-Spine: COMMON NORMALS: full ROM Chest: COMMONS NORMALS: normal inspection of the chest Resp: COMMON NORMALS: normal respiratory effort EFFORT & INSPECTION: Yes able to speak in complete sentences Cardio: COMMON NORMALS: regular rate and regular rhythm RATE: regular rate RHYTHM: regular rhythm GI: COMMON NORMALS: non-tender : COMMON NORMALS: Yes no CVA tenderness BLADDER/KIDNEY EXAM: Yes no CVA tenderness Back/Pelvis: COMMON NORMALS: no CVA tenderness and thoracic and lumbar spine normal to inspection Extremity: COMMON NORMALS: normal to inspection Neuro: COMMON NORMALS: patient oriented x3 and moves all extremities Psych: COMMON NORMALS: mental status grossly normal and cooperative Skin: COMMON NORMALS: no rashes or lesions noted GENERAL SKIN EXAM: no rashes or lesions noted Course ED course: 2355, Dr. Wynn assisted me with evaluation of status. Excellent heart movement was noted, and gestational age done by measurement of crown to rump noted to be 11 weeks 5 days. Vital Signs: Vital signs: Vital Signs Temperature 97.1 F L 03/02/21 19:33 Pulse Rate 20 L 03/03/21 00:09 Respiratory Rate 18 03/03/21 00:09 Blood Pressure 123/78 03/03/21 00:09 Pulse Oximetry 99 03/03/21 00:09 MDM - OB/Uterine Contractions MDM Narrative: Medical decision making narrative: 20-year-old female comes in 11 weeks . Patient was concerned due to some abdominal cramping. On exam abdomen soft nontender. Skin is warm and dry. Respirations even lungs are clear to auscultation. Differential diagnosis includes but not limited to threatened miscarriage, round ligament pain, UTI. Laboratory values were normal, urinalysis was normal. Ultrasound done at bedside noted a good heart tones and gestational age measurements 11 weeks 5 days. hCG levels were up to a bout 120,000. Recommended patient drink plenty of fluids, maintain normal activity, and follow-up with [facility] or primary care for further ins tructions. Patient reported understanding. Lab Data: Labs: Lab Results 03/02/21 03/02/21 03/02/21 21:42 21:42 21:42 WBC 11.3 10^3/uL 10^3 /uL (4.5-13.0) RBC 4.68 10^6/uL 10^6 /uL (4.1-5.3) Hgb 13.5 g/dL g/dL (11.5-15.3) Hct 39.7 % % (37.0-47.0) MCV 84.8 fl fl (81-99) MCH 28.8 pg pg (28.0-34.0) MCHC 34.0 g/dL g/dL (30.0-36.0) RDW 12.2 % % (12.1-15.1) Plt Count 217 10^3/cmm 10^3 /cmm (130-400) MPV 11.3 fL H fL (7.4-10.4) Neut % (Auto) 72.6 % % Lymph % (Auto) 21.1 % % [place] % (Auto) 4.7 % % Eos % (Auto) 1.0 % % Baso % (Auto) 0.2 % % Neut # (Auto) 8.24 10^3/uL H 10 ^3/uL (1.8-8.0) Lymph # (Auto) 2.4 10^3/uL 10^3/ uL (1.5-6.5) [place] # (Auto) 0.5 10^3/uL 10^3/ uL (0.2-0.9) Eos # (Auto) 0.1 10^3/uL 10^3/ uL (0.0-0.8) Baso # (Auto) 0.0 10^3/uL 10^3/ uL (0.0-0.1) Nucleated RBC % (a uto) 0 % % Nucleated RBCs # 0.0 /100WBC /100W BC Sodium 137 mmol/L mmol/L (136-145) Potassium 3.7 mmol/L mmol/L (3.5-5.1) Chloride 101 mmol/L mmol/L (98-107) Carbon Dioxide 22 mmol/L mmol/L (22-29) Anion Gap 17.7 (5-19) BUN 8 mg/dL mg/dL (6-20) Creatinine 0.4 mg/dL L mg/dL (0.5-0.9) GFR Calculation 205.6 mL/min H mL /min (90-130) Glucose 90 mg/dL mg/dL (65-115) Calculated Osmolal ity 282 mOsm/kg L mOs m/kg (285-295) Calcium 9.1 mg/dL mg/dL (8.5-10.5) Total Bilirubin 0.6 mg/dL mg/dL (0.15-1.2) AST 13 U/L U/L (0-32) ALT 10 U/L U/L (0-33) Alkaline Phosphata se 90 IU/L IU/L (35-105) Total Protein 7.5 g/dL g/dL (6.6-8.7) Albumin 4.2 g/dL g/dL (3.5-5.2) Globulin 3.3 g/dL g/dL (1.3-4.6) Ser , Cassia i-Qnt 447954.00 mIU/mL mIU/mL Urine Color Urine Appearance Urine pH Ur Specific Gravit y Urine Protein Urine Glucose (UA) Urine Ketones Urine Blood Urine Nitrate Urine Bilirubin Urine Urobilinogen Ur Leukocyte Nan ase Blood Type B Negative Rho(D) Type Negative 03/02/21 21:42 WBC RBC Hgb Hct MCV MCH MCHC RDW Plt Count MPV Neut % (Auto) Lymph % (Auto) [place] % (Auto) Eos % (Auto) Baso % (Auto) Neut # (Auto) Lymph # (Auto) [place] # (Auto) Eos # (Auto) Baso # (Auto) Nucleated RBC % (a uto) Nucleated RBCs # Sodium Potassium Chloride Carbon Dioxide Anion Gap BUN Creatinine GFR Calculation Glucose Calculated Osmolal ity Calcium Total Bilirubin AST ALT Alkaline Phosphata se Total Protein Albumin Globulin Ser , Cassia i-Qnt Urine Color Yellow (Yellow) Urine Appearance Clear (CLEAR) Urine pH 5 (5-7) Ur Specific Gravit y 1.025 (1.005-1.030) Urine Protein Neg (Negative) Urine Glucose (UA) Norm (Normal) Urine Ketones Negative (Negative) Urine Blood Neg (Negative) Urine Nitrate Negative (Negative) Urine Bilirubin Neg (Negative) Urine Urobilinogen Norm mg/dL mg/dL (Negative) Ur Leukocyte Nan ase Negative (Negative) Blood Type Rho(D) Type Discharge Plan Discharge Patient Disposition: Home Clinical Impression: Abdominal cramping affecting Condition: Stable Prescriptions: No Action albuterol sulfate [Ventolin HFA] 90 mcg/actuation HFA aerosol inhaler 2 puff inhalation Q6H PRN (Reason: shortness of breath or wheezing) Qty: 6.7 RF: 0 buspirone 5 mg tablet 5 mg PO TID PRNRF: 0 Gummies 400 mcg-35 mg- 25 mg-5 mg tablet,chewable PO RF: 0 max (Zingiber officinalis) 250 mg capsule 250 mg PO DAILY RF: 0 Discharge Orders: Discharge ED (Routine); Ordered 03/02/21 Ordered By: Anton Quintero Referrals: Andreia Ospina DO [Primary Care Provider] - Discharge Diet: Usual diet Discharge Activity: Increase activity as tolerated Patient Instructions: Abdominal Pain in (ED), Opioid Safety Activity Restrictions/Additional Instructions: Drink plenty of water. Activity as tolerated. Healthy diet and exercise. Follow-up with primary care for further instruction. Return to the ER for worsening symptoms or vaginal bleeding. Stand Alone Forms: Work/School Release Coding Level of Care Code ED Measurement Analyst for Chg Fwd Exam Comprehensive Documented by User: Edin Wynn DO 03/03/21 01:14 HPI - General: Chief complaint: OB/Uterine Contractions Stated complaint: 11 Weeks Preg-Cramps Kidneys hurt Time Seen by Provider: 03/02/21 23:27 PFSH ED PFSH: Medical History Asthma Generalized anxiety disorder with panic attacks No pertinent past medical history neghx: htn,dm,thyroid,dvt/pe PCP: Dr. Ospina Surgical History H/O esophagogastroduodenoscopy (01/09/21) History of appendectomy History of tonsillectomy Status post laparoscopic cholecystectomy (01/09/21) Family History Mother Hypertension Grandmother Breast cancer Paternal--dx age unknown Denies family history of Colon cancer Ovarian cancer Diabetes Hypercholesteremia Uterine cancer Thyroid disease Stroke Course Vital Signs: Vital signs: Vital Signs Temperature 97.1 F L 03/02/21 19:33 Pulse Rate 20 L 03/03/21 00:09 Respiratory Rate 18 03/03/21 00:09 Blood Pressure 123/78 03/03/21 00:09 Pulse Oximetry 99 03/03/21 00:09 MDM - OB/Uterine Contractions MDM Narrative: Medical decision making narrative: This patient was originally seen by NUNO Young. I have seen and evaluated the patient as well myself. I agree with his history, evaluation, and treatment. Lab Data: Labs: Lab Results 03/02/21 03/02/21 03/02/21 21:42 21:42 21:42 WBC 11.3 10^3/uL 10^3 /uL (4.5-13.0) RBC 4.68 10^6/uL 10^6 /uL (4.1-5.3) Hgb 13.5 g/dL g/dL (11.5-15.3) Hct 39.7 % % (37.0-47.0) MCV 84.8 fl fl (81-99) MCH 28.8 pg pg (28.0-34.0) MCHC 34.0 g/dL g/dL (30.0-36.0) RDW 12.2 % % (12.1-15.1) Plt Count 217 10^3/cmm 10^3 /cmm (130-400) MPV 11.3 fL H fL (7.4-10.4) Neut % (Auto) 72.6 % % Lymph % (Auto) 21.1 % % [place] % (Auto) 4.7 % % Eos % (Auto) 1.0 % % Baso % (Auto) 0.2 % % Neut # (Auto) 8.24 10^3/uL H 10 ^3/uL (1.8-8.0) Lymph # (Auto) 2.4 10^3/uL 10^3/ uL (1.5-6.5) [place] # (Auto) 0.5 10^3/uL 10^3/ uL (0.2-0.9) Eos # (Auto) 0.1 10^3/uL 10^3/ uL (0.0-0.8) Baso # (Auto) 0.0 10^3/uL 10^3/ uL (0.0-0.1) Nucleated RBC % (a uto) 0 % % Nucleated RBCs # 0.0 /100WBC /100W BC Sodium 137 mmol/L mmol/L (136-145) Potassium 3.7 mmol/L mmol/L (3.5-5.1) Chloride 101 mmol/L mmol/L (98-107) Carbon Dioxide 22 mmol/L mmol/L (22-29) Anion Gap 17.7 (5-19) BUN 8 mg/dL mg/dL (6-20) Creatinine 0.4 mg/dL L mg/dL (0.5-0.9) GFR Calculation 205.6 mL/min H mL /min (90-130) Glucose 90 mg/dL mg/dL (65-115) Calculated Osmolal ity 282 mOsm/kg L mOs m/kg (285-295) Calcium 9.1 mg/dL mg/dL (8.5-10.5) Total Bilirubin 0.6 mg/dL mg/dL (0.15-1.2) AST 13 U/L U/L (0-32) ALT 10 U/L U/L (0-33) Alkaline Phosphata se 90 IU/L IU/L (35-105) Total Protein 7.5 g/dL g/dL (6.6-8.7) Albumin 4.2 g/dL g/dL (3.5-5.2) Globulin 3.3 g/dL g/dL (1.3-4.6) Ser , Cassia i-Qnt 400026.00 mIU/mL mIU/mL Urine Color Urine Appearance Urine pH Ur Specific Gravit y Urine Protein Urine Glucose (UA) Urine Ketones Urine Blood Urine Nitrate Urine Bilirubin Urine Urobilinogen Ur Leukocyte Nan ase Blood Type B Negative Rho(D) Type Negative 03/02/21 21:42 WBC RBC Hgb Hct MCV MCH MCHC RDW Plt Count MPV Neut % (Auto) Lymph % (Auto) [place] % (Auto) Eos % (Auto) Baso % (Auto) Neut # (Auto) Lymph # (Auto) [place] # (Auto) Eos # (Auto) Baso # (Auto) Nucleated RBC % (a uto) Nucleated RBCs # Sodium Potassium Chloride Carbon Dioxide Anion Gap BUN Creatinine GFR Calculation Glucose Calculated Osmolal ity Calcium Total Bilirubin AST ALT Alkaline Phosphata se Total Protein Albumin Globulin Ser , Cassia i-Qnt Urine Color Yellow (Yellow) Urine Appearance Clear (CLEAR) Urine pH 5 (5-7) Ur Specific Gravit y 1.025 (1.005-1.030) Urine Protein Neg (Negative) Urine Glucose (UA) Norm (Normal) Urine Ketones Negative (Negative) Urine Blood Neg (Negative) Urine Nitrate Negative (Negative) Urine Bilirubin Neg (Negative) Urine Urobilinogen Norm mg/dL mg/dL (Negative) Ur Leukocyte Nan ase Negative (Negative) Blood Type Rho(D) Type Discharge Plan Discharge Patient Disposition: Home Clinical Impression: Abdominal cramping affecting Condition: Stable Prescriptions: No Action albuterol sulfate [Ventolin HFA] 90 mcg/actuation HFA aerosol inhaler 2 puff inhalation Q6H PRN (Reason: shortness of breath or wheezing) Qty: 6.7 RF: 0 buspirone 5 mg tablet 5 mg PO TID PRNRF: 0 Gummies 400 mcg-35 mg- 25 mg-5 mg tablet,chewable PO RF: 0 max (Zingiber officinalis) 250 mg capsule 250 mg PO DAILY RF: 0 Discharge Orders: Discharge ED (Routine); Ordered 03/02/21 Ordered By: Anton Quintero Referrals: Andreia Ospina DO [Primary Care Provider] - Discharge Diet: Usual diet Discharge Activity: Increase activity as tolerated Patient Instructions: Abdominal Pain in (ED), Opioid Safety Activity Restrictions/Additional Instructions: Drink plenty of water. Activity as tolerated. Healthy diet and exercise. Follow-up with primary care for further instruction. Return to the ER for worsening symptoms or vaginal bleeding. Stand Alone Forms: Work/School Release Coding Level of Care Code ED Measurement Analyst for K[employer]on Fwd Exam Comprehensive
[2021-03-03 00:09] VITALS: BP 123/78; PULSE 20; RESP 18; O2SAT 99
== END 2021-03-03 00:11 | disposition home or self-care (01) ==
PROVIDERS: Emergency Medicine; Emergency Provider Nurse Practitioner Family; PCP Family Medicine
DX: O26.891 Other specified pregnancy related conditions, first trimester (principal); R10.9 Unspecified abdominal pain; Z3A.11 11 weeks gestation of pregnancy
CPT/HCPCS: 80053; 81003; 84702; 85025; 86900; 99283

== ENCOUNTER → 2021-03-07 10:26 | Outpatient (BNVA) | payer MEDICAID, SELFPAY | PROVIDERS: PCP Family Medicine; Visit Provider Obstetrics & Gynecology | DX: Z34.01 Encounter for supervision of normal first pregnancy, first trimester (principal) | CPT/HCPCS: 84315; 86592; 87491; 87591; 87661 ==

== ENCOUNTER → 2021-04-01 13:46 | Outpatient (BNVA) | payer MEDICAID, SELFPAY | PROVIDERS: PCP Family Medicine; Visit Provider Obstetrics & Gynecology | DX: Z34.80 Encounter for supervision of other normal pregnancy, unspecified trimester (principal) | CPT/HCPCS: 81000; 87086 ==

== ENCOUNTER 2021-04-11 19:11 | Emergency (ER) | payer MEDICAID, SELFPAY ==
[2021-04-11 19:20] VITALS: BP 122/72; PULSE 98; RESP 16; TEMP 36.7; O2SAT 98
--- NOTE | 2021-04-11 20:27 | ED_ITS ---
HPI - General: Chief complaint: OB/Uterine Contractions Stated complaint: 18 weeks preg, possible contractions Time Seen by Provider: 04/11/21 20:15 Source: patient Mode of arrival: ambulatory Limitations: no limitations History of Present Illness: HPI Narrative: 20-year-old female who is currently 18 weeks states that she has been having lower abdominal pain throughout the day states that sharp pain seems to come and go was concerned that she is having contractions states pain is currently a 5 out of 10 denies any vaginal bleeding denies any gush of fluid. She denies any fevers. States she has had some slight discharge throughout the . This is her first and denies any difficulties with the . Date of Last Menstrual Period: 12/11/20 Associated symptoms: Reports abdominal pain; Deny dysuria, headache(s), nausea or vomiting Review of Systems Const: Denies: fever(s), chills, body aches or change in appetite Eyes: Denies: blurry vision or eye discomfort ENMT: Denies: throat pain or dental pain Card: Denies: chest pain Resp: Denies: dyspnea GI: Reports: abdominal pain; Denies: nausea, vomiting or diarrhea : Denies: dysuria Musc: Denies: neck pain or back pain Skin/Breast: Denies: rash Neuro: Denies: headache(s) Psych: Denies: depression Kenneth/Lymph: Denies: easy bruising All/Imm: Denies: urticaria PFSH ED PFSH: Medical History Asthma Generalized anxiety disorder with panic attacks No pertinent past medical history neghx: htn,dm,thyroid,dvt/pe PCP: Dr. Ospina Surgical History H/O esophagogastroduodenoscopy (01/09/21) History of appendectomy History of tonsillectomy Status post laparoscopic cholecystectomy (01/09/21) Family History Mother Hypertension Grandmother Breast cancer Paternal--dx age unknown Denies family history of Colon cancer Ovarian cancer Diabetes Hypercholesteremia Uterine cancer Thyroid disease Stroke Social History (Reviewed 03/07/21 @ 07:50 by MANUEL Laird Smoking and tobacco status: former smoker Female Reproductive History: Date of last menstrual period: 12/11/20 Physical Exam Const: COMMON NORMALS: no acute distress, patient oriented x3 and healthy appearing HENMT: COMMON NORMALS: normocephalic and atraumatic HEAD & SCALP: normocephalic and atraumatic Eye: COMMON NORMALS: Equal, round and reactive pupils present and EOMs intact bilaterally PUPIL: Yes Equal, round and reactive pupils present Neck/C-Spine: COMMON NORMALS: full ROM and supple Chest: COMMONS NORMALS: normal inspection of the chest and normal palpation of entire chest wall Resp: COMMON NORMALS: normal respiratory effort, No retractions, No use of accessory muscles and clear to auscultation bilaterally AUSCULTATION: clear to auscultation bilaterally Cardio: COMMON NORMALS: regular rate, regular rhythm and No murmurs present (Cardio) RATE: regular rate RHYTHM: regular rhythm GI: COMMON NORMALS: Normal to inspection, nondistended, normoactive bowel sounds present, Soft to palpation, non-tender and no masses PALPATION: Yes Soft to palpation : OTHER: Cervix closed slight discharge noted with no signs of cervicitis Extremity: COMMON NORMALS: normal to inspection and full ROM Neuro: COMMON NORMALS: patient oriented x3, moves all extremities and no focal motor deficits Psych: COMMON NORMALS: mental status grossly normal, Normal thought process present and cooperative THOUGHT PROCESS: Normal thought process present Skin: COMMON NORMALS: no rashes or lesions noted and no wounds GENERAL SKIN EXAM: no rashes or lesions noted Course Vital Signs: Vital signs: Vital Signs Temperature 98.0 F 04/11/21 19:20 Pulse Rate 98 04/11/21 19:20 Respiratory Rate 20 H 04/11/21 21:15 Blood Pressure 122/72 04/11/21 19:20 Pulse Oximetry 9 L 04/11/21 21:15 MDM - OB/Uterine Contractions MDM Narrative: Medical decision making narrative: Patient presents here with lower abdominal pain in patient's had an appendectomy so no signs of appetite is. Exam here is benign no signs of acute surgical abdomen I did a bedside ultrasound that showed IUP consistent with dates heart rate 146. Cervix was closed no gush of fluid she is to follow-up with her OB next week and return if worsening she understands agrees to plan. Lab Data: Labs: Lab Results 04/11/21 04/11/21 20:15 20:45 WBC 11.2 10^3/uL 10^3 /uL (4.5-13.0) RBC 4.26 10^6/uL 10^6 /uL (4.1-5.3) Hgb 12.3 g/dL g/dL (11.5-15.3) Hct 34.9 % L % (37.0-47.0) MCV 81.9 fl fl (81-99) MCH 28.9 pg pg (28.0-34.0) MCHC 35.2 g/dL g/dL (30.0-36.0) RDW 12.2 % % (12.1-15.1) Plt Count 182 10^3/cmm 10^3 /cmm (130-400) MPV 11.2 fL H fL (7.4-10.4) Neut % (Auto) 69.1 % % Lymph % (Auto) 24.5 % % [place] % (Auto) 5.4 % % Eos % (Auto) 0.5 % % Baso % (Auto) 0.2 % % Neut # (Auto) 7.72 10^3/uL 10^3 /uL (1.8-8.0) Lymph # (Auto) 2.7 10^3/uL 10^3/ uL (1.5-6.5) [place] # (Auto) 0.6 10^3/uL 10^3/ uL (0.2-0.9) Eos # (Auto) 0.1 10^3/uL 10^3/ uL (0.0-0.8) Baso # (Auto) 0.0 10^3/uL 10^3/ uL (0.0-0.1) Nucleated RBC % (a uto) 0 % % Nucleated RBCs # 0.0 /100WBC /100W BC Urine Color Yellow (Yellow) Urine Appearance Clear (CLEAR) Urine pH 5 (5-7) Ur Specific Gravit y 1.010 (1.005-1.030) Urine Protein Neg (Negative) Urine Glucose (UA) Norm (Normal) Urine Ketones Negative (Negative) Urine Blood Neg (Negative) Urine Nitrate Negative (Negative) Urine Bilirubin Neg (Negative) Urine Urobilinogen Neg mg/dL mg/dL (Negative) Ur Leukocyte Nan ase Negative (Negative) Discharge Plan Discharge Patient Disposition: Home Clinical Impression: Abdominal pain affecting Condition: Stable Prescriptions: New Reglan 10 mg tablet 10 mg PO Q6H PRN (Reason: nausea and vomiting) Qty: 20 RF: 0 No Action albuterol sulfate [Ventolin HFA] 90 mcg/actuation HFA aerosol inhaler 2 puff inhalation Q6H PRN (Reason: shortness of breath or wheezing) Qty: 6.7 RF: 0 buspirone 5 mg tablet 5 mg PO TID PRNRF: 0 Gummies 400 mcg-35 mg- 25 mg-5 mg tablet,chewable PO RF: 0 azithromycin 250 mg tablet See Rx Instructions PO .COMPLEX Qty: 6 RF: 0 Discharge Orders: Discharge ED (Routine); Ordered 04/11/21 Ordered By: Pradeep Rodriguez Referrals: Andreia Ospina DO [Primary Care Provider] - Whitney Min MD [Physician] - 1-3 days Discharge Diet: Advance as tolerated Discharge Activity: Resume usual activity Patient Instructions: Abdominal Pain (ED), Abdominal Pain in (ED) Coding Level of Care Code ED Retail Loss Prevention Officer for Kameron Tompkins
[2021-04-11] MEDS: ondansetron 2 mg/ML SDV 2 mL 4 MG IVP (20:30)
[2021-04-11] MEDS: sodium chloride 0.9% 1,000 ML 999 ML IV (20:30)
[2021-04-11 20:34] LABS: Add Urine Microscopic? NO; Charge for UA Resulting for Rev
[2021-04-11 20:36] LABS: Bilirubin Urine Neg (Negative); Blood Urine Neg (Negative); Glucose Urine UA Norm (Normal); Ketones Urine Negative (Negative); Leukocyte Esterase Urine Negative (Negative); Nitrate Urine Negative (Negative); Protein Urine Neg (Negative); Urine Appearance Clear (CLEAR); Urine Color Yellow (Yellow); Urobilinogen Urine Neg (Negative); pH Urine 5 (5-7)
[2021-04-11 20:54] LABS: Basophils % 0.2 %; Eosinophils # 0.1 10^3/uL (0.0-0.8); Eosinophils % 0.5 %; Hematocrit 34.9 % (37.0-47.0); Hemoglobin 12.3 g/dL (11.5-15.3); Lymphocytes # 2.7 10^3/uL (1.5-6.5); Lymphocytes % 24.5 %; Mean Corpuscular HGB Conc 35.2 g/dL (30.0-36.0); Mean Corpuscular Hemoglobin 28.9 pg (28.0-34.0); Mean Corpuscular Volume 81.9 fl (81-99); Mean Platelet Volume 11.2 fL (7.4-10.4); Monocytes # 0.6 10^3/uL (0.2-0.9); Monocytes % 5.4 %; Neutrophils # 7.72 10^3/uL (1.8-8.0); Neutrophils % 69.1 %; Nucleated Red Blood Cells % 0 %; Platelet Count 182 10^3/cmm (130-400); Red Blood Count 4.26 10^6/uL (4.1-5.3); Red Cell Distribution Width 12.2 % (12.1-15.1); White Blood Count 11.2 10^3/uL (4.5-13.0)
[2021-04-11 21:15] VITALS: RESP 20; O2SAT 9
[2021-04-11] MEDS: morphine 4 mg/mL SDV 1 mL IVP (21:15)
[2021-04-11] MEDS: acetaminophen 1,000 MG/100 ML PIGGYBACK 400 MG IV (22:00)
[2021-04-11] MEDS: metoclopramide 10 mg Tablet PO (22:01)
[2021-04-11 22:23] VITALS: BP 158/61; PULSE 78; RESP 18; O2SAT 99
[2021-04-11 22:57] VITALS: BP 140/97; PULSE 87; RESP 18; O2SAT 97
--- NOTE | 2021-04-16 12:45 | DCPLANNER ---
manager privacy had message to schedule a follow up appointment for patient with [facility]. manager privacy called [facility], spoke with Edilson, gave clinic patients information. manager privacy was told that patients information would be printed and reviewed. Clinic will call patient with appointment information.
--- NOTE | 2021-04-17 07:18 | DCPLANNER ---
Patient had a follow up appointment scheduled for 04.16.21 at [facility] - patient did attend appointment.
== END 2021-04-11 23:00 | disposition home or self-care (01) ==
PROVIDERS: Emergency Provider Emergency Medicine; PCP Family Medicine
DX: O26.892 Other specified pregnancy related conditions, second trimester (principal); R10.9 Unspecified abdominal pain; Z3A.18 18 weeks gestation of pregnancy; Z87.891 Personal history of nicotine dependence
CPT/HCPCS: 81003; 85025; 96361; 96374; 96375; 99284; J2270; J2405; J7030; J8597

== ENCOUNTER → 2021-04-18 10:40 | Outpatient (BNVA) | payer MEDICAID, SELFPAY | PROVIDERS: PCP Family Medicine; Visit Provider Obstetrics & Gynecology | DX: O99.891 Other specified diseases and conditions complicating pregnancy (principal); N89.8 Other specified noninflammatory disorders of vagina; Z3A.00 Weeks of gestation of pregnancy not specified | CPT/HCPCS: 84315; 87481; 87512; 87798; 87799 ==

== ENCOUNTER → 2021-05-03 10:58 | Outpatient (BNVA) | payer MEDICAID, SELFPAY | PROVIDERS: PCP Family Medicine; Visit Provider Obstetrics & Gynecology | DX: Z34.01 Encounter for supervision of normal first pregnancy, first trimester (principal) | CPT/HCPCS: 81000 ==

== ENCOUNTER 2021-05-11 22:10 | Outpatient (CLI) | payer MEDICAID, SELFPAY ==
[2021-05-11] VITALS (12 sets, daily range): BP systolic 115–133; BP diastolic 57–74; PULSE 78–100; RESP 15; TEMP 36.5; O2SAT 98–99; BMI 35.2
[2021-05-11] MEDS: ondansetron 2 mg/ML SDV 2 mL 4 MG IVP (23:02)
[2021-05-11] MEDS: dextrose 5%-lactated ringers 1,000 ML 999 ML IV (23:02)
[2021-05-11 23:17] LABS: Basophils % 0.2 %; Eosinophils # 0.1 10^3/uL (0.0-0.8); Eosinophils % 0.7 %; Hematocrit 34.5 % (37.0-47.0); Hemoglobin 11.7 g/dL (11.5-15.3); Lymphocytes # 2.7 10^3/uL (1.5-6.5); Lymphocytes % 23.2 %; Mean Corpuscular HGB Conc 33.9 g/dL (30.0-36.0); Mean Corpuscular Hemoglobin 28.7 pg (28.0-34.0); Mean Corpuscular Volume 84.8 fl (81-99); Mean Platelet Volume 11.6 fL (7.4-10.4); Monocytes # 0.6 10^3/uL (0.2-0.9); Neutrophils # 8.25 10^3/uL (1.8-8.0); Neutrophils % 70.5 %; Nucleated Red Blood Cells % 0 %; Platelet Count 179 10^3/cmm (130-400); Red Blood Count 4.07 10^6/uL (4.1-5.3); Red Cell Distribution Width 12.3 % (12.1-15.1); White Blood Count 11.7 10^3/uL (4.5-13.0)
[2021-05-11 23:35] LABS: Alanine Aminotransferase 6 U/L (0-33); Albumin Level 3.7 g/dL (3.5-5.2); Alkaline Phosphatase 104 IU/L (35-105); Anion Gap 13.6 (5-19); Aspartate Amino Transferase 12 U/L (0-32); Blood Urea Nitrogen 6 mg/dL (6-20); Carbon Dioxide 22 mmol/L (22-29); Chloride 104 mmol/L (98-107); Globulin 2.4 g/dL (1.3-4.6); Glomerular Filtration Rate 203.5 mL/min (90-130); Glucose 89 mg/dL (65-115); Osmolality Calculated 279 mOsm/kg (285-295); Potassium 3.6 mmol/L (3.5-5.1); Sodium 136 mmol/L (136-145); Total Bilirubin 0.4 mg/dL (0.15-1.2); Total Protein 6.1 g/dL (6.6-8.7)
[2021-05-11 23:42] LABS: SARS Covid-2 Antigen Negative (Negative)
[2021-05-12] VITALS (7 sets, daily range): BP systolic 104–120; BP diastolic 51–70; PULSE 85–91; RESP 15; TEMP 36.2–36.3; O2SAT 98
[2021-05-12] MEDS: dextrose 5%-lactated ringers 1,000 ML 999 ML IV ×2 (00:08→01:47)
[2021-05-12 01:04] LABS: Adenovirus Not Detected (NOT DETECT); Chlamydia Pneumoniae Not Detected (NOT DETECT); Coronavirus 229E,HKU1,NL63,OC4 Not Detected (NOT DETECT); Human Metapneumovirus Not Detected (NOT DETECT); Human Rhinovirus/Enterovirus Not Detected (NOT DETECT); Influenza A Not Detected (NOT DETECT); Influenza A H1 Not Detected (NOT DETECT); Influenza A H1-2009 Not Detected (NOT DETECT); Influenza A H3 Not Detected (NOT DETECT); Influenza B Not Detected (NOT DETECT); Mycoplasma Pneumoniae Not Detected (NOT DETECT); Parainfluenza Virus Type 1 Not Detected (NOT DETECT); Parainfluenza Virus Type 2 Not Detected (NOT DETECT); Parainfluenza Virus Type 3 Not Detected (NOT DETECT); Parainfluenza Virus Type 4 Not Detected (NOT DETECT); Respiratory Syncytial Virus A Not Detected (NOT DETECT); Respiratory Syncytial Virus B Not Detected (NOT DETECT); SARS-COV-2 Not Detected (NOT DETECT)
[2021-05-12 01:14] LABS: Bilirubin Urine Neg (Negative); Blood Urine Neg (Negative); Glucose Urine UA Trace (Normal); Ketones Urine Negative (Negative); Leukocyte Esterase Urine Negative (Negative); Nitrate Urine Negative (Negative); Protein Urine Neg (Negative); Urine Appearance Clear (CLEAR); Urine Color Yellow (Yellow); Urobilinogen Urine Norm (Negative); pH Urine 7 (5-7)
[2021-05-12] MEDS: metoclopramide 5 mg/mL SDV 2 mL 10 MG IVP (01:48)
[2021-05-12 01:50] LABS: Add Urine Culture? No; Bacteria Urine 1+ /hpf; RBC Urine 0-4 /hpf (0-2); WBC Urine 0-4 /hpf (0-5)
[2021-05-12] MEDS: acetaminophen 500 mg Tablet 1000 MG PO (01:53)
== END 2021-05-12 02:10 | disposition home or self-care (01) ==
LOC: OPOB 22:14 → OBGYN 22:15
PROVIDERS: PCP Family Medicine; Visit Provider Obstetrics & Gynecology
DX: O36.8190 Decreased fetal movements, unspecified trimester, not applicable or unspecified (principal); Z3A.00 Weeks of gestation of pregnancy not specified; R51.9 Headache, unspecified; R42 Dizziness and giddiness; R60.9 Edema, unspecified; R50.9 Fever, unspecified; O21.9 Vomiting of pregnancy, unspecified
CPT/HCPCS: 36415; 80053; 81001; 85025; 87426; 87635; 99211; J2405; J2765

== ENCOUNTER → 2021-05-27 13:06 | Outpatient (BNVA) | payer MEDICAID, SELFPAY | PROVIDERS: PCP Family Medicine; Visit Provider Obstetrics & Gynecology | DX: Z34.90 Encounter for supervision of normal pregnancy, unspecified, unspecified trimester (principal) | CPT/HCPCS: 81000 ==

== ENCOUNTER 2021-05-30 08:30 | Outpatient (CLI) | payer MEDICAID, SELFPAY ==
[2021-05-30] VITALS (20 sets, daily range): BP systolic 103–148; BP diastolic 52–80; PULSE 68–106; RESP 18; TEMP 36.7; BMI 36.2
--- NOTE | 2021-05-30 09:05 | US_ITS ---
WS: [id number] obstetrical ultrasound. HISTORY: Vaginal bleeding and pelvic pain. COMPARISON: 04/29/2021. Single intrauterine gestation is present in cephalic position. Heart rate at 150 bpm. Placenta is pos terior with no previa or abruption. Placenta ends greater than 2 cm above the internal cervical os. N ormal amount of amniotic fluid surrounding the fetus. Cervix is closed measuring just greater than 3 cm in length. There is a very tiny amount of fluid ana ng the internal cervical os. No insufficiency at this time. US/US OB lmt with transvaginal IMPRESSION: Normal length cervix with no insufficiency. Posterior placenta with no previa or abruption. Normal amniotic fluid.
[2021-05-30 09:39] LABS: Basophils % 0.2 %; Eosinophils % 0.3 %; Hematocrit 33.9 % (37.0-47.0); Hemoglobin 11.4 g/dL (11.5-15.3); Lymphocytes % 17.2 %; Mean Corpuscular HGB Conc 33.6 g/dL (30.0-36.0); Mean Corpuscular Hemoglobin 28.9 pg (28.0-34.0); Mean Platelet Volume 11.4 fL (7.4-10.4); Monocytes # 0.6 10^3/uL (0.2-0.9); Monocytes % 4.7 %; Neutrophils # 9.08 10^3/uL (1.8-8.0); Neutrophils % 77.1 %; Nucleated Red Blood Cells % 0 %; Platelet Count 203 10^3/cmm (130-400); Red Blood Count 3.94 10^6/uL (4.1-5.3); Red Cell Distribution Width 12.2 % (12.1-15.1); White Blood Count 11.8 10^3/uL (4.5-13.0)
[2021-05-30 10:06] LABS: Alanine Aminotransferase < 5 U/L (0-33); Albumin Level 3.8 g/dL (3.5-5.2); Alkaline Phosphatase 114 IU/L (35-105); Anion Gap 15.2 (5-19); Aspartate Amino Transferase 10 U/L (0-32); Blood Urea Nitrogen 7 mg/dL (6-20); Calcium 9.3 mg/dL (8.5-10.5); Carbon Dioxide 21 mmol/L (22-29); Chloride 102 mmol/L (98-107); Globulin 2.8 g/dL (1.3-4.6); Glomerular Filtration Rate 203.5 mL/min (90-130); Glucose 72 mg/dL (65-115); Osmolality Calculated 275 mOsm/kg (285-295); Potassium 4.2 mmol/L (3.5-5.1); Sodium 134 mmol/L (136-145); Total Bilirubin 0.5 mg/dL (0.15-1.2); Total Protein 6.6 g/dL (6.6-8.7); Uric Acid 3.4 mg/dL (2.4-5.7)
[2021-05-30 10:07] LABS: Add Urine Microscopic? YES; Bilirubin Urine 1+ (Negative); Blood Urine Neg (Negative); Glucose Urine UA Norm (Normal); Ketones Urine 1+ (Negative); Leukocyte Esterase Urine Negative (Negative); Nitrate Urine Negative (Negative); Protein Urine Trace (Negative); Specific Gravity, Urine 1.025 (1.005-1.030); Urine Appearance Clear (CLEAR); Urine Color Yellow (Yellow); Urobilinogen Urine 1 mg/dL (Negative); pH Urine 5 (5-7)
[2021-05-30 10:08] LABS: Add Urine Culture? No; Bacteria Urine TRACE /hpf; Mucus Urine TRACE /hpf; Squamous Epithelial Cell Urine 0-4 /hpf (0-5)
[2021-05-30 10:16] LABS: Urine Creatinine 239 mg/dL (28-217); Urine Protein Random 18 mg/dL
[2021-05-30 10:17] LABS: UPRO/UCREAT Ratio 0.08 mg/mg CR
--- NOTE | 2021-05-30 13:31 | P.PN_ITS ---
Subjective Subjective: Short stay summary: Ms Deluna is a 21-year-old 1 para 0 at 24 weeks and 3 days gestation who presented to labor and delivery with reports of vaginal bleeding and lower abdominal discomfort. She states that the bleeding started yesterday at 3 PM. She states that she called and spoke to Dr. Min who wanted her to be seen in the clinic the next day but as she was concerned she came into labor and delivery. She states that she was last sexually active more than 2 months ago and the only thing she did yesterday was look at houses to buy and so she did do a lot of walking. She otherwise denies placing anything into her vagina. She showed the nurses pictures of bright red blood and small blood clots. She denies heavy bleeding but states that every time she wipes she did see blood. She denies any new partners. -When she came to labor and delivery she was stable however had elevated blood pressure and pulse and was extremely anxious. tracing was appropriate for gestational age of 24 with a baseline of 145 and moderate variability. She was not having any contractions and no longer had abdominal pain. Ultrasound done ruled out previa and no obvious signs of abruption was noted and cervix appears closed and thick. Pelvic exam was done which confirmed closed thick and high cervix. She was observed on Labor and Delivery for 4 Risal during that time did not have any vaginal bleeding and no blood was noted on examining glove. tracing remained appropriate for gestational age. Lab work was done. [facility] labs were done just because of elevated blood pressure and were within normal limits. Her blood pressure return to normal once she saw that the baby looked okay and was thought to be secondary to anxiety. She was noted to be AB- and received a dose of RhoGam on 05/30/2021 since we were not sure exactly where the bleeding came from. Antibody screen was negative at this time. CBC was overall normal. -Pelvic exam done showed ectropion/cervicitis so gonorrhea and Chlamydia were sent. Cervix remained closed thick and high after 4 hours and since she was overall stable decision was made to discharge patient home. -It was discussed with patient that at this time she possibly had a mild abruption versus just bleeding from ectropion on the cervix. Without being sure would recommend getting RhoGam when she was okay with receiving this. I discus sed importance of pelvic rest for now until cleared by Dr. Min. I discussed results of the ultrasound results of all the blood work. All her questions were answered. Discussed importance of kick counts and coming in for any concerns or worsening of symptoms between now and when she comes into the clinic to be evaluated. She understands this -All her questions were answered and she agrees with the current plan of care. I spent 40 minutes with the patient in discussion and counseling as documented above This documentation was created by [employer] security operations center analyst software (known for i evert security operations center analyst error). Every effort was made to assure accuracy of security operations center analyst. Any obvious errors or omissions should be clarified with the author of the document. Vitals/I&O/Wt Last Vital Signs Temp 98.1 F 05/30/21 12:45 Pulse 82 05/30/21 13:05 Resp 18 05/30/21 12:45 BP 106/63 05/30/21 13:05 05/29/21 05/30/21 05/30/21 22:59 06:59 14:59 Intake Total 0 / 0 Balance 0 / 0 Weight last 48 hrs Weight 211 lb Data : 05/30/21 09:15 05/30/21 09:15 Attestations Medical Necessity Statement*: Patient is being discharged Coding Level of Care Code Acute Distance Learning Program Coordinator for Kameron Tompkins
== END 2021-05-30 13:26 | disposition home or self-care (01) ==
LOC: OPOB 08:37 → OBGYN 08:38
PROVIDERS: PCP Family Medicine; Visit Provider Obstetrics & Gynecology
DX: O46.92 Antepartum hemorrhage, unspecified, second trimester (principal); Z3A.24 24 weeks gestation of pregnancy
CPT/HCPCS: 36415; 76815; 76817; 80053; 81001; 82570; 84156; 84550; 85025; 85460; 86850; 86900; 87491; 87591; 90384; 99211

== ENCOUNTER → 2021-06-03 09:12 | Outpatient (BNVA) | payer MEDICAID, SELFPAY | PROVIDERS: PCP Family Medicine; Visit Provider Obstetrics & Gynecology | DX: Z34.90 Encounter for supervision of normal pregnancy, unspecified, unspecified trimester (principal) | CPT/HCPCS: 84315; 87481; 87512; 87798; 87799 ==

== ENCOUNTER → 2021-06-27 09:08 | Outpatient (BNVA) | payer MEDICAID, SELFPAY | PROVIDERS: PCP Family Medicine; Visit Provider Obstetrics & Gynecology | DX: O26.899 Other specified pregnancy related conditions, unspecified trimester (principal); Z67.91 Unspecified blood type, Rh negative; Z3A.00 Weeks of gestation of pregnancy not specified | CPT/HCPCS: 80503; 82950; 84315; 85025; 86850; 86870 ==

== ENCOUNTER 2021-07-02 13:50 | Outpatient (CLI) | payer MEDICAID, SELFPAY ==
[2021-07-02] VITALS (8 sets, daily range): BP systolic 113–128; BP diastolic 56–68; PULSE 85–101; BMI 38.7
== END 2021-07-02 16:25 | disposition home or self-care (01) ==
LOC: OPOB 13:55 → OBGYN 13:56
PROVIDERS: PCP Family Medicine; Visit Provider Obstetrics & Gynecology
DX: O26.899 Other specified pregnancy related conditions, unspecified trimester (principal); Z3A.00 Weeks of gestation of pregnancy not specified; N89.8 Other specified noninflammatory disorders of vagina
CPT/HCPCS: 99211

== ENCOUNTER 2021-07-02 22:30 | Observation (INO) | payer MEDICAID, SELFPAY ==
[2021-07-02 21:26] VITALS: BMI 38.7
[2021-07-02 21:30] VITALS: BP 143/71; PULSE 100; PULSE 94; O2SAT 100
[2021-07-02 21:46] VITALS: BP 124/57; PULSE 85
[2021-07-02 21:53] LABS: Nitrazine Paper, PH Negative
[2021-07-02 21:59] LABS: Actim Prom Negative
[2021-07-02 22:00] VITALS: BP 118/58; PULSE 83
[2021-07-02 22:15] VITALS: BP 130/65; PULSE 90
[2021-07-02 22:30] VITALS: BP 124/65; PULSE 89
[2021-07-02] MEDS: hyDROXYzine 25 mg Capsule 50 MG PO (22:45)
[2021-07-02] MEDS: acetaminophen 500 mg Tablet 1000 MG PO (22:45)
[2021-07-02] MEDS: cyclobenzaprine 10 mg Tablet PO (22:46)
[2021-07-03] VITALS (7 sets, daily range): BP systolic 110–115; BP diastolic 56–59; PULSE 78–98; RESP 15; TEMP 36.1–36.3
--- NOTE | 2021-07-03 08:29 | PC.NURSE ---
monitors removed, pt reassured that FHTs were WNL and reassuring, and no contractions noted. VSS. pt states that she knows my body and something is not right . pt questioned to her concerns, she states that she knows that a blood pressure of 115/58 is not normal for her, she has bleeding and leaking fluid every day, she can not work because she is in pain all the time. RN reassured pt that lab testing ruled out rupture of membranes, and she had not had any visable bleeding while being observed in the unit. this RN asked what I can help her with right now, she states nothing, you aren't a doctor . Pt had refused IV fluids overnight, but states she will take them now as long as it doesn't hurt. This RN called Dr Min and discussed pt c/o. Orders for UA received, and she is on her way to the hospital and will evaluate pt when she arrives. This was relayed to the pt, who states she understands and wants to talk with her MD.
[2021-07-03 08:55] LABS: Bilirubin Urine Neg (Negative); Blood Urine Neg (Negative); Glucose Urine UA Norm (Normal); Ketones Urine Negative (Negative); Leukocyte Esterase Urine Negative (Negative); Nitrate Urine Negative (Negative); Protein Urine Neg (Negative); Urine Appearance Clear (CLEAR); Urine Color Yellow (Yellow); Urobilinogen Urine Norm (Negative); pH Urine 7 (5-7)
[2021-07-03 08:58] LABS: Bacteria Urine TRACE /hpf; Squamous Epithelial Cell Urine 0-4 /hpf (0-5)
[2021-07-03 08:59] LABS: Add Urine Culture? No
--- NOTE | 2021-07-03 11:00 | PM.OBGYHP ---
Providers/Chief Complaint Admitting Physician: Whitney Min MD Primary SALES REPRESENTATIVE GIRLS' APPAREL: Whitney Min MD Primary Care Provider: Andreia Ospina DO Chief Complaint: ROM HPI SALES REPRESENTATIVE GIRLS' APPAREL History of Present Illness Dea Deluna is a 21 year old G1 female who presented for ROM and vaginal bleeding. She was found to have intact bag of water and no bleeding. Her mother was insistent that there was something wrong with her daughter. She will be admitted for observation. Present Details : 1 Para: 0 Date of Last Menstrual Period: 12/11/20 Calculated Date of Delivery: 09/17/21 Gestational Age Based on Last Menstrual Period: 29 Review of Systems General: Reports: 10 or more systems reviewed and unremarkable except in HPI and below Medications/Allergies Home Medications Medication Instructions Recorded Confirmed Last Taken Type albuterol sulfate 90 mcg/actuation 2 puff INHALATION Q6H PRN #6.7 g 11/01/20 07/03/21 12/26/20 Rx aerosol inhaler (Ventolin HFA) PNV 153-FA 400 mcg-om3 35 mg-dha 1 tab PO DAILY 02/06/21 07/03/21 07/02/21 History 25 mg-epa 5 mg-fish oil chew tablet ( Gummies) ondansetron HCl 4 mg tablet 4 mg PO Q6H #30 tab 06/24/21 07/03/21 07/02/21 Rx (Zofran) Allergies Allergy/AdvReac Type Severity Reaction Status Date / Time penicillin G Allergy Mild I get Verified 07/03/21 04:34 super hyper and break out and my throat swells up. flu Allergy ALGY-Hives Uncoded 06/27/21 09:15 PFSH SALES REPRESENTATIVE GIRLS' APPAREL PFSH: Medical History Asthma Generalized anxiety disorder with panic attacks No pertinent past medical history neghx: htn,dm,thyroid,dvt/pe PCP: Dr. Ospina Surgical History H/O esophagogastroduodenoscopy (01/09/21) History of appendectomy History of tonsillectomy Status post laparoscopic cholecystectomy (01/09/21) Family History Mother Hypertension Grandmother Breast cancer Paternal--dx age unknown Denies family history of Colon cancer Ovarian cancer Diabetes Hypercholesteremia Uterine cancer Thyroid disease Stroke Social History Smoking and tobacco status: former smoker History History History 1 Term Miscarriages/Ectopic Living Children Care TRACIE Calculator Estimated Delivery Date Method Current WG Current Estimate 09/16/21 LMP (Certain) 29w 2d Other Estimates 09/19/21 Ultrasound #1 28w 6d Specific Issues/Plans Unknown varicella immunity--is going to check her shot records Anxiety Asthma Vitals/I&O/Wt Last Vital Signs Temp 97.4 F L 07/03/21 07:15 Pulse 98 07/03/21 08:06 Resp 15 07/03/21 07:15 BP 115/58 07/03/21 08:06 Pulse Ox 100 07/02/21 21:30 Weight last 48 hrs Weight 226 lb Weight 226 lb Physical Exam Narrative: The patient has high anxiety. She is complaining of pain everywhere. She can't get out of bed. She is bleeding with clots, she is having gushes of fluid. Const: COMMON NORMALS: no acute distress, patient oriented x3, no limitations, healthy appearing, alert and well nourished GENERAL APPEARANCE: cooperative, comfortable, well kempt and well developed ORIENTATION/CONSCIOUSNESS: Yes awake, Yes oriented to person, Yes oriented to place and Yes oriented to time Resp: COMMON NORMALS: normal respiratory effort EFFORT & INSPECTION: Yes able to speak in complete sentences GI: COMMON NORMALS: Soft to palpation and non-tender : COMMON NORMALS: Yes normal external appearance, Yes normal appearance of the vagina and Yes normal appearance of the cervix SPECULUM EXAM - VAGINA: Yes erythematous and Yes Vaginal discharge present Vaginal discharge present: white Extremity: COMMON NORMALS: no calf tenderness A&P Assessment and plan (1) Supervision of normal : Will admit for observation NST q shift IV fluids D5 LR at 125 ml/hr Status: Acute Qualifiers: Normal : normal first Trimester: first trimester Qualified Code(s): Z34.01 - Encounter for supervision of normal first , first trimester (2) Generalized anxiety disorder with panic attacks: Status: Acute Attestations Medical Necessity Statement*: The patient will likely be discharged in the AM Coding Level of Care Code Acute Network Cabler for Kameron Tompkins Diagnoses Supervision of normal Z34.01 Normal : normal first Trimester: first trimester Generalized anxiety disorder with panic attacks F41.1; F41.0
--- NOTE | 2021-07-03 11:07 | P.PN_ITS ---
Subjective Subjective: The patient refused the IV overnight. she slept well with the hydroxyzine and cyclobenzaprine. She has multiple concerns this morning. 1. She is having vaginal bleeding. No bleeding has ever been noted during her two admissions 2. Her body hurts so much that she cannot work and she cannot even get out of bed without help. She walked to the bathroom without assistance while here. 3. Her gushes fluid from her vagina- Numerous tests were done and all negative for ROM 4. She has high anxiety. She self discontinued early in . Vitals/I&O/Wt Last Vital Signs Temp 97.4 F L 07/03/21 07:15 Pulse 98 07/03/21 08:06 Resp 15 07/03/21 07:15 BP 115/58 07/03/21 08:06 Pulse Ox 100 07/02/21 21:30 Weight last 48 hrs Weight 226 lb Weight 226 lb Physical Exam Narrative: The patient is well this morning. We discussed her issues and will send in medications to address today. status has been overall very reassuring. Const: COMMON NORMALS: no acute distress, patient oriented x3, no limitations, healthy appearing, alert and well nourished GENERAL APPEARANCE: cooperative, comfortable, well kempt and well developed ORIENTATION/CONSCIOUSNESS: Yes awake, Yes oriented to person, Yes oriented to place and Yes oriented to time Resp: COMMON NORMALS: normal respiratory effort EFFORT & INSPECTION: Yes able to speak in complete sentences GI: COMMON NORMALS: Soft to palpation and non-tender PALPATION: Yes Soft to palpation Extremity: COMMON NORMALS: no calf tenderness Neuro: COMMON NORMALS: patient oriented x3 SENSORIUM/ORIENTATION: Yes alert, Yes oriented to person, Yes oriented to place and Yes oriented to time Psych: APPEARANCE: Yes well kempt A&P Assessment and plan (1) Low back pain: Will start flexeril to see if this helps for pain Status: Acute (2) Vaginal discharge: appears to be yeast on exam- plan treatment with diflucan Status: Acute (3) Supervision of normal : is going well. No problems with fetus Status: Acute Qualifiers: Normal : normal first Trimester: first trimester Qualified Code(s): Z34.01 - Encounter for supervision of normal first , first trimester (4) Generalized anxiety disorder with panic attacks: will restart buspirone and start vistaril Status: Acute (5) Anemia affecting : patient to have iron studies today and then be referred to Dr. Winters for iron infusions. Status: Acute Attestations Medical Necessity Statement*: The patient will be discharged today. Coding Level of Care Code Acute Data Power Consultant for Kameron Tompkins Diagnoses Low back pain M54.50 Vaginal discharge N89.8 Supervision of normal Z34.01 Normal : normal first Trimester: first trimester Generalized anxiety disorder with panic attacks F41.1; F41.0 Anemia affecting O99.019 Time Spent (min) 45
--- NOTE | 2021-07-03 11:29 | PM.DCS ---
Discharge Providers Date of Admission: 07/02/21 22:30 Date of Discharge: July 03, 2021 Attending Provider at Admission: Whitney Min MD Attending Provider at Discharge: Whitney Min MD Primary Care Provider: Andreia Ospina DO Diagnoses at Discharge Discharge Diagnosis (1) Low back pain: Status: Acute (2) Vaginal discharge: Status: Acute (3) Supervision of normal : Status: Acute Qualifiers: Normal : normal first Trimester: first trimester Qualified Code(s): Z34.01 - Encounter for supervision of normal first , first trimester (4) Generalized anxiety disorder with panic attacks: Status: Acute (5) Anemia affecting : Status: Acute Reason for Visit Reason for Visit: ROM Hospital Course Hospital Course The patient was admitted overnight for observation due to multiple maternal complaints. She did well overnight. She refused an IV. We discussed all of her problems and hopefully have some resolution. She has a follow up appointment on Thursday. Discharge Data Studies Completed and Pending Laboratory Results Insulin-like GF I Negative 07/02/21 21:40 Urine Color Yellow (Yellow) 07/03/21 08:30 Urine Appearance Clear (CLEAR) 07/03/21 08:30 Urine pH 7 (5-7) 07/03/21 08:30 Ur Specific [employer] 1.010 (1.005-1.030) 07/03/21 08:30 Urine Protein Neg (Negative) 07/03/21 08:30 Urine Glucose (UA) Norm (Normal) 07/03/21 08:30 Urine Ketones Negative (Negative) 07/03/21 08:30 Urine Blood Neg (Negative) 07/03/21 08:30 Urine Nitrate Negative (Negative) 07/03/21 08:30 Urine Bilirubin Neg (Negative) 07/03/21 08:30 Urine Urobilinogen Norm mg/dL (Negative) 07/03/21 08:30 Ur Leukocyte Esterase Negative (Negative) 07/03/21 08:30 Urine RBC None /hpf (0-2) 07/03/21 08:30 Urine WBC None /hpf (0-5) 07/03/21 08:30 Ur Squamous Epith Cells 0-4 /hpf (0-5) H 07/03/21 08:30 Amorphous Sediment Not Reportable 07/03/21 08:30 Urine Bacteria Trace /hpf (NONE) 07/03/21 08:30 Vitals Last Vital Signs Temp 97.4 F L 07/03/21 07:15 Pulse 98 07/03/21 08:06 Resp 15 07/03/21 07:15 BP 115/58 07/03/21 08:06 Pulse Ox 100 07/02/21 21:30 Discharge Plan Discharge Patient Disposition: Home Condition: Stable Prescriptions: New Diflucan 150 mg tablet 150 mg PO Q3D Qty: 3 0RF hydroxyzine HCl 50 mg tablet 50 mg PO Q6H Qty: 120 2RF buspirone 5 mg tablet 5 mg PO TID Qty: 90 6RF cyclobenzaprine 10 mg tablet 10 mg PO TID Qty: 90 3RF Continued albuterol sulfate [Ventolin HFA] 90 mcg/actuation HFA aerosol inhaler 2 puff inhalation Q6H PRN (Reason: shortness of breath or wheezing) Qty: 6.7 0RF Gummies 400 mcg-35 mg- 25 mg-5 mg tablet,chewable 1 tab PO DAILY 0RF ondansetron HCl [Zofran] 4 mg tablet 4 mg PO Q6H Qty: 30 2RF Discharge Orders: Discharge Order (Routine); Ordered 07/03/21 Ordered By: Whitney Min Patient Instructions: Opioid Safety Discharge Attestations Time Spent in Discharge Care*: greater than 30 min Quality Metrics Clinical Quality Measures [ No reported AMI, CVA or VTE this stay] Coding Level of Care Code Acute Chg FW DC note Diagnoses Low back pain M54.50 Vaginal discharge N89.8 Supervision of normal Z34.01 Normal : normal first Trimester: first trimester Generalized anxiety disorder with panic attacks F41.1; F41.0 Anemia affecting O99.019
--- NOTE | 2021-07-03 11:49 | PC.NURSE ---
Edy(Administration wind commissioning technician) and Matilde, RN Nurse Cotton Grower, and DANNY Owusu bedside nurse in to discuss care with Dea and her mother Aleena. All concerns discussed, and pt agrees to proceed with plan of care. Dr Min in, sterile speculum exam performed and treatment plan discussed. All questions and concerns discussed. Labs drawn as ordered and pt put on monitors, then to D/C home.
[2021-07-03 16:16] LABS: Iron 23 ug/dL (37-145); Percent Saturation 5.5 % (20-50); Total Iron Binding Capacity 412 mcg/dl; Unsaturated Iron Binding 389 ug/dL (112-347)
[2021-07-03 16:21] LABS: Folate Level 12.3 ng/mL (4.8-37.3)
== END 2021-07-03 12:10 | disposition home or self-care (01) ==
PROVIDERS: Admitting Provider Obstetrics & Gynecology; PCP Family Medicine; Visit Provider Obstetrics & Gynecology
DX: O99.013 Anemia complicating pregnancy, third trimester (principal); Z3A.29 29 weeks gestation of pregnancy; F41.1 Generalized anxiety disorder; F41.0 Panic disorder [episodic paroxysmal anxiety]; M54.50 Low back pain, unspecified; N89.8 Other specified noninflammatory disorders of vagina; Z87.891 Personal history of nicotine dependence
CPT/HCPCS: 36415; 59025; 81001; 82746; 83540; 83550; 83986; 84112; 99211; G0378

== ENCOUNTER → 2021-07-08 11:00 | Outpatient (BNVA) | payer MEDICAID, SELFPAY | PROVIDERS: PCP Family Medicine; Visit Provider Obstetrics & Gynecology | DX: O26.899 Other specified pregnancy related conditions, unspecified trimester (principal); Z3A.00 Weeks of gestation of pregnancy not specified | CPT/HCPCS: 81000; 87086 ==

== ENCOUNTER → 2021-07-12 12:02 | Day surgery (SDC) | payer MEDICAID, SELFPAY ==
[2021-07-12 12:18] VITALS: BP 113/71; PULSE 100; RESP 18; TEMP 36.5; O2SAT 96
[2021-07-12] MEDS: iron sucrose 200 MG in sodium chloride 0.9% (100 ml) 100 ML 220 MG IV (12:26)
== END ==
PROVIDERS: PCP Family Medicine; Visit Provider Internal Medicine
DX: O99.019 Anemia complicating pregnancy, unspecified trimester (principal); Z3A.00 Weeks of gestation of pregnancy not specified; K90.9 Intestinal malabsorption, unspecified
CPT/HCPCS: 96365; J1756

== ENCOUNTER → 2021-07-19 12:11 | Day surgery (SDC) | payer MEDICAID, SELFPAY ==
[2021-07-19] MEDS: iron sucrose 200 MG in sodium chloride 0.9% (100 ml) 100 ML 220 MG IV (12:29)
[2021-07-19 12:35] VITALS: BP 141/72; PULSE 102; RESP 18; TEMP 36.9; O2SAT 97
== END ==
PROVIDERS: PCP Family Medicine; Visit Provider Internal Medicine
DX: K90.9 Intestinal malabsorption, unspecified (principal); O99.019 Anemia complicating pregnancy, unspecified trimester; Z3A.00 Weeks of gestation of pregnancy not specified
CPT/HCPCS: 96365; J1756

== ENCOUNTER → 2021-07-22 12:09 | Outpatient (BNVA) | payer MEDICAID, SELFPAY | PROVIDERS: PCP Family Medicine; Visit Provider Obstetrics & Gynecology | DX: O26.899 Other specified pregnancy related conditions, unspecified trimester (principal); Z67.91 Unspecified blood type, Rh negative; F41.1 Generalized anxiety disorder; F41.0 Panic disorder [episodic paroxysmal anxiety]; J45.909 Unspecified asthma, uncomplicated; Z3A.00 Weeks of gestation of pregnancy not specified | CPT/HCPCS: 81000 ==

== ENCOUNTER 2021-07-25 13:41 | Outpatient (CLI) | payer MEDICAID, SELFPAY ==
[2021-07-25] VITALS (13 sets, daily range): BP systolic 100–124; BP diastolic 56–69; PULSE 86–108; RESP 16; BMI 39.4
[2021-07-25] MEDS: dextrose 5%-lactated ringers 1,000 ML 999 ML IV ×2 (14:20→15:16)
[2021-07-25] MEDS: ondansetron 2 mg/ML SDV 2 mL 4 MG IVP (14:23)
[2021-07-25 14:50] LABS: Add Urine Microscopic? NO; Charge for UA Resulting for Rev
[2021-07-25 14:54] LABS: Basophils % 0.2 %; Eosinophils % 0.1 %; Hematocrit 34.9 % (37.0-47.0); Hemoglobin 11.2 g/dL (11.5-15.3); Lymphocytes # 1.5 10^3/uL (1.5-6.5); Lymphocytes % 10.5 %; Mean Corpuscular HGB Conc 32.1 g/dL (30.0-36.0); Mean Corpuscular Hemoglobin 27.5 pg (28.0-34.0); Mean Corpuscular Volume 85.5 fl (81-99); Mean Platelet Volume 11.5 fL (7.4-10.4); Monocytes # 0.7 10^3/uL (0.2-0.9); Monocytes % 4.6 %; Neutrophils # 12.26 10^3/uL (1.8-8.0); Neutrophils % 83.8 %; Nucleated Red Blood Cells % 0 %; Platelet Count 190 10^3/cmm (130-400); Red Blood Count 4.08 10^6/uL (4.1-5.3); White Blood Count 14.6 10^3/uL (4.5-13.0)
[2021-07-25 14:56] LABS: Bilirubin Urine Neg (Negative); Blood Urine Neg (Negative); Glucose Urine UA Norm (Normal); Ketones Urine 1+ (Negative); Leukocyte Esterase Urine Negative (Negative); Nitrate Urine Negative (Negative); Protein Urine Neg (Negative); Specific Gravity, Urine 1.015 (1.005-1.030); Urine Appearance Clear (CLEAR); Urine Color Yellow (Yellow); Urobilinogen Urine Neg (Negative); pH Urine 7 (5-7)
[2021-07-25 15:13] LABS: Alanine Aminotransferase 10 U/L (0-33); Albumin Level 3.7 g/dL (3.5-5.2); Alkaline Phosphatase 141 IU/L (35-105); Anion Gap 14.9 (5-19); Aspartate Amino Transferase 14 U/L (0-32); Blood Urea Nitrogen 7 mg/dL (6-20); Carbon Dioxide 21 mmol/L (22-29); Chloride 103 mmol/L (98-107); Globulin 3.5 g/dL (1.3-4.6); Glomerular Filtration Rate 283.6 mL/min (90-130); Glucose 80 mg/dL (65-115); Osmolality Calculated 277 mOsm/kg (285-295); Potassium 3.9 mmol/L (3.5-5.1); Sodium 135 mmol/L (136-145); Total Bilirubin 0.9 mg/dL (0.15-1.2); Total Protein 7.2 g/dL (6.6-8.7); Uric Acid 4.1 mg/dL (2.4-5.7)
[2021-07-25 15:18] LABS: Urine Creatinine 74 mg/dL (28-217); Urine Protein Random 7 mg/dL
[2021-07-25 15:28] LABS: UPRO/UCREAT Ratio 0.09 mg/mg CR
--- NOTE | 2021-07-25 16:14 | PC.NURSE ---
Prescription called to [facility] [place] at this time. Phenergan 12.5mg suppositories #10 with no refills.
[2021-07-25] MEDS: promethazine 25 mg/mL SDV 1 mL IM (16:19)
== END 2021-07-25 16:35 | disposition home or self-care (01) ==
LOC: OPOB 13:42 → OBGYN 13:46
PROVIDERS: Obstetrics & Gynecology; PCP Family Medicine; Visit Provider Obstetrics & Gynecology
DX: O26.899 Other specified pregnancy related conditions, unspecified trimester (principal); Z3A.00 Weeks of gestation of pregnancy not specified; R11.0 Nausea; M54.9 Dorsalgia, unspecified
CPT/HCPCS: 36415; 59025; 80053; 81003; 82570; 84156; 84550; 85025; 96372; 99211; J2405; J2550

== ENCOUNTER → 2021-08-02 12:25 | Day surgery (SDC) | payer MEDICAID, SELFPAY ==
[2021-08-02] MEDS: iron sucrose 200 MG in sodium chloride 0.9% (100 ml) 100 ML 220 MG IV (12:39)
[2021-08-02 12:43] VITALS: BP 127/73; PULSE 116; RESP 18; TEMP 36.6; O2SAT 96
== END ==
PROVIDERS: PCP Family Medicine; Visit Provider Internal Medicine
DX: K90.9 Intestinal malabsorption, unspecified (principal); O99.019 Anemia complicating pregnancy, unspecified trimester; Z3A.00 Weeks of gestation of pregnancy not specified
CPT/HCPCS: 96365; J1756

== ENCOUNTER → 2021-08-05 11:19 | Outpatient (BNVA) | payer MEDICAID, SELFPAY | PROVIDERS: PCP Family Medicine; Visit Provider Obstetrics & Gynecology | DX: Z34.90 Encounter for supervision of normal pregnancy, unspecified, unspecified trimester (principal) | CPT/HCPCS: 81000 ==

== ENCOUNTER → 2021-08-09 12:33 | Day surgery (SDC) | payer MEDICAID, SELFPAY ==
[2021-08-09 12:43] VITALS: BMI 39.4
[2021-08-09 12:44] VITALS: BP 134/69; PULSE 114; RESP 18; TEMP 36.2; O2SAT 97
[2021-08-09] MEDS: iron sucrose 200 MG in sodium chloride 0.9% (100 ml) 100 ML 220 MG IV (12:46)
== END ==
PROVIDERS: PCP Family Medicine; Visit Provider Internal Medicine
DX: K90.9 Intestinal malabsorption, unspecified (principal); O99.019 Anemia complicating pregnancy, unspecified trimester
CPT/HCPCS: 96365; J1756

== ENCOUNTER 2021-08-11 18:25 | Outpatient (CLI) | payer MEDICAID, SELFPAY ==
[2021-08-11] VITALS (16 sets, daily range): BP systolic 115–145; BP diastolic 57–79; PULSE 92–111; RESP 16; TEMP 36.3; BMI 43.9
--- NOTE | 2021-08-11 19:11 | USR_ITS ---
PROCEDURE INFORMATION: Exam: US , Limited Exam date and time: 08/11/2021 7:31 PM Age: 21 years old Clinical indication: Lmp or gestational age (in weeks): 35w1d; Labor and delivery abnormalities and other: Patient passing blood clots; Other: Patient claims contractions; TECHNIQUE: Imaging protocol: Real-time ultrasound of the maternal uterus with image documentation. Exam focused on the clinical indication. COMPARISON: US OB limited [facility] 07/02/2021 1:04 PM FINDINGS: Gestation: Single intrauterine . heart rate: heart rate 157 bpm. presentation: Cephalic presentation. position: Cervix not well visualized due to head position according to technologist notes. Placenta: Placenta is posterior. Amniotic fluid index: Amniotic fluid index normal at 19.2. US/US OB limited [id number] IMPRESSION: 1. Single intrauterine . 2. Cephalic presentation. 3. Placenta is posterior. 4. Cervix not well visualized due to head position according to technologist notes. 5. heart rate 157 bpm. 6. Amniotic fluid index normal at 19.2.
[2021-08-11] MEDS: lactated ringers 1,000 ML 999 ML IV (20:10)
[2021-08-11 20:29] LABS: Alanine Aminotransferase 10 U/L (0-33); Albumin Level 3.6 g/dL (3.5-5.2); Alkaline Phosphatase 130 IU/L (35-105); Anion Gap 15.8 (5-19); Aspartate Amino Transferase 13 U/L (0-32); Blood Urea Nitrogen 8 mg/dL (6-20); Calcium 8.2 mg/dL (8.5-10.5); Carbon Dioxide 20 mmol/L (22-29); Chloride 103 mmol/L (98-107); Globulin 2.7 g/dL (1.3-4.6); Glomerular Filtration Rate 203.5 mL/min (90-130); Glucose 92 mg/dL (65-115); Osmolality Calculated 278 mOsm/kg (285-295); Potassium 3.8 mmol/L (3.5-5.1); Sodium 135 mmol/L (136-145); Total Bilirubin 0.4 mg/dL (0.15-1.2); Total Protein 6.3 g/dL (6.6-8.7); Uric Acid 3.8 mg/dL (2.4-5.7)
[2021-08-11] MEDS: lactated ringers 1,000 ML 125 ML IV (21:20)
[2021-08-11 21:30] LABS: Urine Color Yellow (Yellow)
[2021-08-11 21:31] LABS: Add Urine Culture? No; Bacteria Urine TRACE /hpf; Bilirubin Urine Neg (Negative); Blood Urine Neg (Negative); Glucose Urine UA Norm (Normal); Ketones Urine Negative (Negative); Leukocyte Esterase Urine Negative (Negative); Nitrate Urine Negative (Negative); Protein Urine Neg (Negative); RBC Urine 0-4 /hpf (0-2); Specific Gravity, Urine 1.015 (1.005-1.030); Squamous Epithelial Cell Urine 0-4 /hpf (0-5); Urine Appearance Clear (CLEAR); Urobilinogen Urine Norm (Negative); WBC Urine 0-4 /hpf (0-5); pH Urine 5 (5-7)
[2021-08-11 21:41] LABS: Basophils % 0.1 %; Eosinophils % 0.2 %; Hematocrit 33.4 % (37.0-47.0); Hemoglobin 11.1 g/dL (11.5-15.3); Lymphocytes # 2.5 10^3/uL (1.5-6.5); Lymphocytes % 14.5 %; Mean Corpuscular HGB Conc 33.2 g/dL (30.0-36.0); Mean Corpuscular Hemoglobin 27.7 pg (28.0-34.0); Mean Corpuscular Volume 83.3 fl (81-99); Mean Platelet Volume 11.5 fL (7.4-10.4); Monocytes # 0.8 10^3/uL (0.2-0.9); Monocytes % 4.8 %; Neutrophils # 13.68 10^3/uL (1.8-8.0); Neutrophils % 79.5 %; Nucleated Red Blood Cells % 0 %; Platelet Count 205 10^3/cmm (130-400); Red Blood Count 4.01 10^6/uL (4.1-5.3); Red Cell Distribution Width 14.9 % (12.1-15.1); White Blood Count 17.2 10^3/uL (4.5-13.0)
[2021-08-11 21:43] LABS: Urine Creatinine 61 mg/dL (28-217); Urine Protein Random 5 mg/dL
[2021-08-11 21:44] LABS: UPRO/UCREAT Ratio 0.08 mg/mg CR
== END 2021-08-11 22:30 | disposition home or self-care (01) ==
LOC: OPOB 18:27 → OBGYN 18:28
PROVIDERS: PCP Family Medicine; Visit Provider Obstetrics & Gynecology
DX: O46.93 Antepartum hemorrhage, unspecified, third trimester (principal); Z3A.35 35 weeks gestation of pregnancy
CPT/HCPCS: 36415; 59025; 76815; 80053; 81001; 82570; 84156; 84550; 85025; 85460; 86850; 86870; 86900; 99211

== ENCOUNTER → 2021-08-16 13:01 | Day surgery (SDC) | payer MEDICAID, SELFPAY ==
[2021-08-16] MEDS: iron sucrose 200 MG in sodium chloride 0.9% (100 ml) 100 ML 220 MG IV (13:19)
[2021-08-16 13:24] VITALS: BP 114/74; PULSE 104; RESP 18; TEMP 37; O2SAT 96
== END ==
PROVIDERS: PCP Family Medicine; Visit Provider Internal Medicine
DX: O99.019 Anemia complicating pregnancy, unspecified trimester (principal); K90.9 Intestinal malabsorption, unspecified
CPT/HCPCS: 96365; J1756

== ENCOUNTER → 2021-08-19 11:18 | Outpatient (BNVA) | payer MEDICAID, SELFPAY | PROVIDERS: PCP Family Medicine; Visit Provider Obstetrics & Gynecology | DX: Z34.80 Encounter for supervision of other normal pregnancy, unspecified trimester (principal) | CPT/HCPCS: 81000; 87081 ==

== ENCOUNTER → 2021-09-02 10:12 | Outpatient (BNVA) | payer MEDICAID, SELFPAY | PROVIDERS: PCP Family Medicine; Visit Provider Obstetrics & Gynecology | DX: O26.899 Other specified pregnancy related conditions, unspecified trimester (principal); Z67.91 Unspecified blood type, Rh negative | CPT/HCPCS: 81000; 87086 ==

== ENCOUNTER → 2021-09-04 18:49 | Outpatient (BNVA) | payer MEDICAID, SELFPAY | PROVIDERS: PCP Family Medicine; Visit Provider Registered Nurse Neonatal Intensive Care | DX: J02.9 Acute pharyngitis, unspecified (principal) | CPT/HCPCS: 87880 ==

== ENCOUNTER 2021-09-10 09:29 | Inpatient (IN) | payer MEDICAID, SELFPAY ==
[2021-09-10] VITALS (44 sets, daily range): BP systolic 97–154; BP diastolic 50–90; PULSE 68–106; RESP 17; TEMP 36.1–36.7
[2021-09-10 10:46] LABS: Basophils % 0.2 %; Eosinophils # 0.1 10^3/uL (0.0-0.8); Eosinophils % 0.5 %; Hematocrit 36.9 % (37.0-47.0); Lymphocytes # 2.5 10^3/uL (1.5-6.5); Mean Corpuscular HGB Conc 32.5 g/dL (30.0-36.0); Mean Corpuscular Hemoglobin 27.6 pg (28.0-34.0); Mean Platelet Volume 11.6 fL (7.4-10.4); Monocytes # 0.9 10^3/uL (0.2-0.9); Monocytes % 5.9 %; Neutrophils # 11.14 10^3/uL (1.8-8.0); Neutrophils % 75.9 %; Nucleated Red Blood Cells % 0 %; Platelet Count 199 10^3/cmm (130-400); Red Blood Count 4.34 10^6/uL (4.1-5.3); Red Cell Distribution Width 15.2 % (12.1-15.1); White Blood Count 14.7 10^3/uL (4.5-13.0)
[2021-09-10] MEDS: lactated ringers 1,000 ML 999 ML IV (11:00)
[2021-09-10] MEDS: miSOPROStol 100 mcg tablet 25 MCG VAGINAL ×2 (13:46→18:09)
--- NOTE | 2021-09-10 14:23 | P.HPUD_ITS ---
Labor & Delivery H&P Update Date of Procedure: September 10, 2021 Date H&P Performed: 09/09/21 H&P update information: I have reviewed H&P completed within last 30 days, I have examined patient prior to procedure, Changes to prior documentation as noted here and H&P is in [facility] EMR on date indicated Changes to previous documentation: -Discussed with her in detail usual course of labor, risks of labor including bleeding, infection, damage to surrounding organs, possibility of and its risks and benefits, possibility of vacuum/forceps use, possibility of episiotomy. Risks and benefits for all of these were reviewed with her. Also dis cussed use of Cytotec/Pitocin for induction/augmentation of labor if needed. Discussed the FDA warning for Cytotec. All her questions were answered to her satisfaction and she has no objection to any of these. Consents were signed and have been scanned into the chart on 09/10/2021. All her questions were answered. Admission Diagnosis: Preop diagnosis: Chronic cholecystitis
[2021-09-10] MEDS: dextrose 5%-lactated ringers 1,000 ML 125 ML IV (19:46)
[2021-09-11] VITALS (114 sets, daily range): BP systolic 96–139; BP diastolic 47–90; PULSE 60–92; RESP 16; TEMP 36–37.4; O2SAT 92–100
[2021-09-11] MEDS: hyDROXYzine 25 mg Capsule 50 MG PO ×2 (00:21→17:54)
[2021-09-11] MEDS: alum-mag-hydroxide-sime 30 mL UDC PO (01:42)
[2021-09-11] MEDS: dextrose 5%-lactated ringers 1,000 ML 125 ML IV ×2 (04:55→21:19)
[2021-09-11] MEDS: acetaminophen 325 mg Tablet 650 MG PO (07:31)
[2021-09-11] MEDS: miSOPROStol 100 mcg tablet 25 MCG VAGINAL ×2 (07:59→13:12)
[2021-09-11] MEDS: dextrose 5%-lactated ringers 1,000 ML 999 ML IV (12:37)
[2021-09-11] MEDS: fentaNYL 50 mcg/mL INJ 2mL IVP ×2 (17:43→19:32)
[2021-09-11] MEDS: oxytocin 30 UNIT/500 ML BAG IV (18:18)
[2021-09-11] MEDS: lactated ringers 1,000 ML 999 ML IV (22:04)
--- NOTE | 2021-09-11 23:01 | P.ANESASSM_ITS ---
Pre-Anesthetic Assessment Height/Weight: Height 1.57 m Weight 113.398 kg Temp Pulse Resp BP Pulse Ox 96.8 F L 87 16 120/68 100 09/11/21 18:19 09/11/21 22:14 09/11/21 19:32 09/11/21 21:50 09/11/21 22:14 Preop Diagnosis: labor epidural Familial anesthetic complications: none Was Beta Savita taken within 24 hours: N/A Was Clonidine taken within 24 hours: N/A Last Intake: 20:00 Social No alcohol and No tobacco Exam alert, oriented x 3, clear to auscultation bilaterally and regular rate & rhythm Airway Submandibular: within normal limits Cervical ROM: within normal limits Mallampati: Class II Dentition: full Pulmonary Asthma CV/HEM None reported None reported Hepatic None reported GI Gastroesophageal Reflux Disease Metabolic Morbid Obesity [facility] None reported Neuropsych Anxiety Anesthetic Plan ASA status: 2 Anesthesia: Regional (specify below) (epidural) Risk of > 500 ml blood loss (7ml/kg in children): No Medications/Allergies Home Medications Medication Instructions Recorded Confirmed Last Taken Type albuterol sulfate 90 mcg/actuation 2 puff INHALATION Q6H PRN #6.7 g 11/01/20 09/09/21 08/15/21 Rx aerosol inhaler (Ventolin HFA) PNV 153-FA 400 mcg-om3 35 mg-dha 1 tab PO DAILY 02/06/21 09/09/21 08/15/21 History 25 mg-epa 5 mg-fish oil chew tablet ( Gummies) ondansetron HCl 4 mg tablet 4 mg PO Q6H #30 tab 06/24/21 09/09/21 08/15/21 Rx (Zofran) buspirone 5 mg tablet 5 mg PO TID #90 tab 07/03/21 09/09/21 08/15/21 Rx cyclobenzaprine 10 mg tablet 10 mg PO TID #90 tab 07/03/21 09/09/21 08/15/21 Rx hydroxyzine HCl 50 mg tablet 50 mg PO Q6H #120 tab 07/03/21 09/09/21 08/15/21 Rx Saccharomyces boulardii 250 mg 250 mg PO DAILY cap 07/08/21 09/09/21 08/15/21 History capsule (Daily Probiotic (S. boulardii)) Allergies Allergy/AdvReac Type Severity Reaction Status Date / Time penicillin G Allergy Mild I get Verified 09/09/21 10:52 super hyper and break out and my throat swells up. flu Allergy ALGY-Hives Uncoded 09/09/21 10:52 Current Medications Generic Name Dose Route Start Last Admin Trade Name Freq PRN Reason Stop Dose Admin Acetaminophen 650 mg 09/10/21 09:53 09/11/21 07:31 Acetaminophen 325 Mg Tablet PO 650 mg Q6H PRN Administration Mild pain or temp > 100.4 Al Hydrox/Mg Hydrox/Simethicone 30 ml 09/10/21 09:53 09/11/21 01:42 Vpnu-Kkw-Wowtwypae-Anil 30 Ml Udc PO 30 ml Q4H PRN Administration INDIGESTION Fentanyl 25 - 100 mcg 09/11/21 17:28 09/11/21 19:32 Fentanyl 50 Mcg/Ml Inj 2ml IVP 25 mcg Q1H PRN Administration SEVERE PAIN Hydroxyzine Pamoate 50 mg 09/10/21 09:53 09/11/21 17:54 Hydroxyzine 25 Mg Capsule PO 50 mg QID PRN Administration sleep, agitation or itching Dextrose/Lactated Ringer's 1,000 mls @ 125 mls/hr 09/10/21 10:00 09/11/21 21:19 Dextrose 5%-Lactated Ringers IV 125 mls/hr .Q8H MARITZA Administration Lactated Ringer's 1,000 mls @ 999 mls/hr 09/10/21 10:00 09/10/21 11:30 Lactated Ringers IV 125 mls/hr .Q1H1M MARITZA Infusion Oxytocin 30 unit in 500 mls @ 1 mls/hr 09/11/21 18:00 09/11/21 20:15 Pitocin IV 3 milliunit/min .Q24H MARITZA 3 mls/hr Titration Protocol 1 MILLIUNIT/MIN PFS Anesthesia Medical History Asthma Generalized anxiety disorder with panic attacks No pertinent past medical history neghx: htn,dm,thyroid,dvt/pe PCP: Dr. Ospina Surgical History H/O esophagogastroduodenoscopy (01/09/21) History of appendectomy History of tonsillectomy Status post laparoscopic cholecystectomy (01/09/21) Family History Mother Hypertension Grandmother Breast cancer Paternal--dx age unknown Denies family history of Colon cancer Ovarian cancer Diabetes Hypercholesteremia Uterine cancer Thyroid disease Stroke Social History Smoking and tobacco status: former smoker Female Reproductive History Date of last menstrual period: 12/11/20 : 1 Data Anesthesia : 09/10/21 10:35 Short CBC 09/10/21 Range/Units 10:35 WBC 14.7 H (4.5-13.0) 10^3/uL Hgb 12.0 (11.5-15.3) g/dL Hct 36.9 L (37.0-47.0) % MCV 85.0 (81-99) fl Plt Count 199 (130-400) 10^3/cmm Neut % (Auto) 75.9 % Neut # (Auto) 11.14 H (1.8-8.0) 10^3/uL Cardiac Studies: No Data to Display Anesthesia Procedures Epidural Time Out Performed: Yes Consents Signed: Procedure Consent Consent: requested by attending/covering physician, from patient, risks and benefits reviewed and patient agrees to proceed
--- NOTE | 2021-09-11 23:36 | ANES.PROC ---
Anesthesia Procedures Procedure/Date: 09/11/21 Epidural: Time Out Performed: Yes Consents Signed: Procedure Consent and NPO Consent Consent: requested by attending/covering physician, from patient, risks and benefits reviewed and patient agrees to proceed Lumbar Level: L3-L4 Epidural position: sitting Epidural procedure: sterile prep of area (betadine), 1% lidocaine to numb the area (3ml), 18 g needle, negative for paresthesia passed, neg for paresthesia, test dose given, 1.5% xylocaine 1:200k epi (5ml), 0.2% Ropivacaine bolus ml (5ml), placed PCEA, no systemic response, sterile dressing applied, L.U.D. no apparent complications and 0.2% Ropiavacaine @ mls/hr (13ml/hr)
[2021-09-12] VITALS (70 sets, daily range): BP systolic 101–140; BP diastolic 51–99; PULSE 56–104; RESP 15–17; TEMP 36.7–37.1; O2SAT 92–100
[2021-09-12] MEDS: lactated ringers 1,000 ML 999 ML IV (00:26)
[2021-09-12] MEDS: ondansetron 2 mg/ML SDV 2 mL 4 MG IVP (02:58)
[2021-09-12] MEDS: dextrose 5%-lactated ringers 1,000 ML 125 ML IV (03:30)
--- NOTE | 2021-09-12 08:08 | PM.DELIVERY ---
Delivery Note: Date of delivery: September 12, 2021 Pre-delivery diagnoses: Term Procedure: Spontaneous vaginal delivery Estimated blood loss (mL): 300 Delivery: The patient was noted to be complete and pushing, so was placed in the dorsal lithotomy position, prepped and draped in the usual sterile fashion for a vaginal delivery. Pt. Noted to have epidural anesthesia. At 0800 the patient delivered a viable term female infant weighing 3640g with scores of 8 and 9 at one and five minutes, respectively. The vertex was delivered spontaneously over intact perineum/midline episiotomy/mediolateral episiotomy. The patient was asked to push and the head delivered spontaneously in the BALDOMERO position, over an intact perineum. A nuchal cord was checked and none noted, and delivered through as necessary. A 5 seconds shoulder dystocia was encountered which was relieved with Angelica maneuver the anterior shoulder delivered easily and the posterior shoulder followed. The remainder of the infant was easily delivered and the oropharynx and nasopharynx was bulb suctioned. The infant was noted to have spontaneous cry and spontaneous movement of all four extremities. The cord was clamped x 2 and cut and noted to have 2 arteries and one vein. The infant was passed to the mother's abdomen where nursing personnel were in attendance. Cord blood sample was then obtained. The placenta delivered intact spontaneously and the uterus was explored. 20 units of Pitocin was placed in the IV bag to firm the uterus. Examination of the cervix and vaginal vault did not reveal any lacerations. A vaginal pack was then placed. Examination of the perineum showed no lacerations. The vaginal pack was then removed. The patient tolerated this procedure well, and recovered in L&D with her infant in their LDR room. All sponge and needle counts were correct. Post-Delivery Status: Acute and hemodynamically stable History History History 1 Term Miscarriages/Ectopic Living Children Coding Level of Care Code Acute Brokerage Branch Manager for Gegeg Turner
[2021-09-12] MEDS: ibuprofen 800 mg tablet PO ×3 (10:07→21:13)
[2021-09-12] MEDS: prenatal vitamin Capsule 1 CAP PO (10:08)
[2021-09-12] MEDS: docusate sodium 100 mg Capsule PO (10:08)
[2021-09-12 20:21] LABS: Hematocrit 34.7 % (37.0-47.0); Hemoglobin 11.3 g/dL (11.5-15.3); Mean Corpuscular HGB Conc 32.6 g/dL (30.0-36.0); Mean Corpuscular Hemoglobin 27.4 pg (28.0-34.0); Mean Corpuscular Volume 84.2 fl (81-99); Mean Platelet Volume 11.5 fL (7.4-10.4); Platelet Count 174 10^3/cmm (130-400); Red Blood Count 4.12 10^6/uL (4.1-5.3); Red Cell Distribution Width 14.8 % (12.1-15.1); White Blood Count 16.6 10^3/uL (4.5-13.0)
[2021-09-13 03:42] VITALS: BP 134/82; PULSE 76; RESP 16; O2SAT 97
--- NOTE | 2021-09-13 08:00 | PM.OBGYDC ---
Discharge Providers LOCAL COMBINATION TRUCK DRIVER Date of Admission: 09/10/21 14:23 Date of Discharge: 09/13/21 Attending Provider at Admission: Bhavin Russo MD Attending Provider at Discharge: Desmond David MD Primary LOCAL COMBINATION TRUCK DRIVER: Dr. Min Primary Care Provider: Andreia Ospina DO Diagnoses at Discharge Other Information Additional DC diagnoses/information: Infant delivered by Dr. Desmond David MD Reason for Visit Reason for Visit: Induction of Labor Hospital Course Hospital Course 21Y/o female with IUP at 39+3weeks admitted to labor and delivery for an elective induction. She had an uneventful care. Misoprostol was given for cervical ripening and she had a slow progression of labor to a spontaneous vaginal delivery of viable term female 8/9 with weight 3640 gms. observation was uneventful. Tolerated diet well. Ambulating without difficulty. Information Peripartum Data: Infant Delivery Method: Vaginal Physical Exam Narrative: GA; alert and oriented x 3 HEENT: normal Breasts: engorged Nipples - skin intact Lungs; clear to auscultation Heart: regular rhythm, no murmurs. Abd: Appropriately tender. BS+. Uterine fundus below umbilicus. No Fundal Tenderness. Perineum: normal lochia. Extremities: no edema, no cyanosis, no tenderness. Urinary Catheter Management: Tran Latex: Cath Placed During This Visit: yes, but has since been removed by the nurse Reason for Continuing Indwelling Catheter: Accurate Measurement of Urinary Output in Critically Ill Patients Urinary Catheter Date of Insertion: 09/11/21 Urinary Catheter Time of Insertion: 23:55 Date Urinary Catheter Removed: 09/12/21 Time Urinary Catheter Discontinued: 07:20 History History History 1 Term Miscarriages/Ectopic Living Children Discharge Data Studies Completed and Pending Pending at discharge Category Date Time Status Antibody Identification Routine Lab 09/10/21 10:35 Results Complete Crossmatch Routine Lab 09/10/21 10:35 Results Rho D Immune Globulin Routine Lab 09/10/21 10:35 Results Type and Screen Routine Lab 09/10/21 10:35 Results Laboratory Results WBC 16.6 10^3/uL (4.5-13.0) H 09/12/21 20:14 RBC 4.12 10^6/uL (4.1-5.3) 09/12/21 20:14 Hgb 11.3 g/dL (11.5-15.3) L 09/12/21 20:14 Hct 34.7 % (37.0-47.0) L 09/12/21 20:14 MCV 84.2 fl (81-99) 09/12/21 20:14 MCH 27.4 pg (28.0-34.0) L 09/12/21 20:14 MCHC 32.6 g/dL (30.0-36.0) 09/12/21 20:14 RDW 14.8 % (12.1-15.1) 09/12/21 20:14 Plt Count 174 10^3/cmm (130-400) 09/12/21 20:14 MPV 11.5 fL (7.4-10.4) H 09/12/21 20:14 Neut % (Auto) 75.9 % 09/10/21 10:35 Lymph % (Auto) 17.0 % 09/10/21 10:35 [place] % (Auto) 5.9 % 09/10/21 10:35 Eos % (Auto) 0.5 % 09/10/21 10:35 Baso % (Auto) 0.2 % 09/10/21 10:35 Neut # (Auto) 11.14 10^3/uL (1.8-8.0) H 09/10/21 10:35 Lymph # (Auto) 2.5 10^3/uL (1.5-6.5) 09/10/21 10:35 [place] # (Auto) 0.9 10^3/uL (0.2-0.9) 09/10/21 10:35 Eos # (Auto) 0.1 10^3/uL (0.0-0.8) 09/10/21 10:35 Baso # (Auto) 0.0 10^3/uL (0.0-0.1) 09/10/21 10:35 Nucleated RBC % (auto) 0 % 09/10/21 10:35 Nucleated RBCs # 0.0 /100WBC 09/10/21 10:35 Blood Type B Negative 09/10/21 10:35 Rho(D) Type Negative 09/10/21 10:35 Antibody Screen Positive 09/10/21 10:35 Antibody Identification Anti-D 09/10/21 10:35 Screen Negative (Negative) 09/12/21 20:14 Vitals Last Vital Signs Temp 98.2 F 09/12/21 12:33 Pulse 76 09/13/21 03:42 Resp 16 09/13/21 03:42 BP 134/82 09/13/21 03:42 Pulse Ox 97 09/13/21 03:42 Discharge Plan Discharge Patient Disposition: Home Condition: Stable Prescriptions: New acetaminophen 325 mg capsule 325 mg PO Q4H PRN (Reason: fever or pain) Qty: 60 0RF ibuprofen 800 mg tablet 800 mg PO TID PRN (Reason: pain) Qty: 60 0RF Continued albuterol sulfate [Ventolin HFA] 90 mcg/actuation HFA aerosol inhaler 2 puff inhalation Q6H PRN (Reason: shortness of breath or wheezing) Qty: 6.7 0RF Gummies 400 mcg-35 mg- 25 mg-5 mg tablet,chewable 1 tab PO DAILY 0RF Saccharomyces boulardii [Daily Probiotic (S. boulardii)] 250 mg capsule 250 mg PO DAILY 0RF ondansetron HCl [Zofran] 4 mg tablet 4 mg PO Q6H Qty: 30 2RF hydroxyzine HCl 50 mg tablet 50 mg PO Q6H Qty: 120 2RF buspirone 5 mg tablet 5 mg PO TID Qty: 90 6RF cyclobenzaprine 10 mg tablet 10 mg PO TID Qty: 90 3RF Discharge Orders: Discharge Order (Routine); Ordered 09/13/21 Ordered By: Desmond David Referrals: Whitney Min MD [Physician] - 10/18/21 9:15 am (Dr Min office will call you with your 2 week follow up visit) Discharge Diet: Usual diet Discharge Activity: Limit activity as instructed Patient Instructions: Depression (DC), Bleeding (DC), Preeclampsia and Eclampsia After Delivery (GEN), Breast Care for the Non- Mother (DC), OB Discharge Report, OB Food/Drug Interaction Guide, OB Care at Home, Opioid Safety, OB Vaginal Deliveries - [facility] Activity Restrictions/Additional Instructions: 1. Please call [facility] on next working day to make your post-operative appointment in 2 weeks. 2. Please stay home until you come back to the clinic on first post-operative check up. 3. Please follow instructions on your medications CAREFULLY. 4. If you have abdominal incision, do not cover it unless dressing is necessary because of drainage. OK to shower, but avoid bath. Leave steri-strips until they fall off. If they are still on one week after surgery, you may remove them. 5. If you had vaginal surgery or vaginal repair, Dr. David may instruct you to take SITZ bath. 6. Yellow, blood tinged odorous vaginal discharge is usually normal after hysterectomy or vaginal surgeries. 7. No sexual intercourse, tampons, or douches until you are completely released from the post-operative care. 8. Avoid constipation by eating right and maybe using some Metamucil or Milk of Magnesia. 9. All prescription refills are given during the working hours. Please do no wait till it runs out. Call the clinic at [phone] before your medication runs out. The clinic will get in touch with your doctor to prescribe medications if necessary. 10. Please remain within 40 mile radius from our hospital because emergencies do happen now and then during the post-operative period. 11. If you have stairs at home, take one step at a time slowly and minimize the number of trips. It helps to stay in one floor for the next few days. No lifting except what you can lift by one hand until you are released from the post-operative care. 12. Driving is discouraged until you are well healed. It may be 3-4 weeks before you feel strong enough to drive. You should be able to turn and look through the rear window without pain and you should be able to push the brake pedal very hard without pain before you drive. No fast rules, but SAFETY should be your primary concern. DO NOT drive if you are on sedating medications such as narcotics. 13. Call the clinic (during working hours) to make urgent appointment or go to the Emergency room, if any of the following occurs: i. Vaginal bleeding becomes heavy, more than a period. ii. Incision becomes red and sore, or drains pus. iii. Your temperature is over 100.4 or you have chill. iv. IV site becomes red and swollen (a little ``knot?? is usually OK) v. Persistent nausea and vomiting vi. Persistent constipation or diarrhea vii. Rash or allergic reaction to medications. Discharge Attestations LOCAL COMBINATION TRUCK DRIVER Time Spent in Discharge Care*: greater than 30 min Coding Level of Care Code Acute Music Librarian for Kameron Tompkins
[2021-09-13 10:27] VITALS: BP 137/89; PULSE 72; RESP 16; TEMP 36.9; O2SAT 99
--- NOTE | 2021-09-13 17:17 | ANE.PACU2 ---
Inpatient post-anesthesia follow up: Airway intact: Yes Vital signs: Temperature 98.4 F Pulse Rate 72 Respiratory Rate 16 Blood Pressure 137/89 Pulse Oximetry 99 Oxygen Delivery Me thod Room Air Oxygen Flow Rate 10 Fraction of Inspir ed Oxygen Hydration adequate: Yes Nausea and vomiting: No Pain level: 1 Mental status: Baseline
== END 2021-09-13 10:24 | disposition home or self-care (01) | DRG 807 ==
LOC: OPOB 09:30 → OBGYN 09:58
PROVIDERS: Obstetrics & Gynecology; Admitting Provider Obstetrics & Gynecology; PCP Family Medicine; Visit Provider Obstetrics & Gynecology
DX: O99.02 Anemia complicating childbirth (principal); Z37.0 Single live birth; D50.9 Iron deficiency anemia, unspecified; O99.344 Other mental disorders complicating childbirth; F41.1 Generalized anxiety disorder; Z3A.39 39 weeks gestation of pregnancy; O99.52 Diseases of the respiratory system complicating childbirth; J45.909 Unspecified asthma, uncomplicated; Z67.91 Unspecified blood type, Rh negative
CPT/HCPCS: 36415; 51702; 59025; 59409; 80503; 85025; 85027; 85460; 86850; 86870; 86900; 90384; 99211; G0378; J2405; J2795; J3010

== ENCOUNTER → 2021-11-20 14:23 | Outpatient (BNVA) | payer MEDICAID, SELFPAY | PROVIDERS: PCP Family Medicine; Visit Provider Obstetrics & Gynecology | DX: T83.9XXA Unspecified complication of genitourinary prosthetic device, implant and graft, initial encounter (principal) | CPT/HCPCS: 87070; 87205 ==

== ENCOUNTER 2022-02-14 16:10 | Emergency (ER) | payer MEDICAID, SELFPAY ==
[2022-02-14 16:20] VITALS: BP 118/75; PULSE 88; RESP 15; TEMP 36.6; O2SAT 98; BMI 36.2
--- NOTE | 2022-02-14 16:37 | USR_ITS ---
PROCEDURE INFORMATION: Exam: US Nonobstetric Pelvis; Complete Exam date and time: 02/14/2022 5:06 PM Age: 21 years old Clinical indication: Pelvic pain; Patient HX: Lmp 01-30-22 TECHNIQUE: Imaging protocol: Transabdominal pelvic nonobstetric ultrasound. Complete exam. Real time ultrasound with image documentation. COMPARISON: US pelvic with transvaginal 11/15/2020 9:54 AM FINDINGS: Uterus: 8.9 x 4.1 cm retroflexed uterus. 10 mm endometrial stripe. Cervix: Minimal nonspecific fluid in the endocervical canal. Right ovary/adnexa: 4.0 x 4.4 x 1.4 cm right ovary with estimated volume 13 cc. Normal ovarian perfusion bilaterally with no torsion. Left ovary/adnexa: 3.5 x 3.2 x 1.6 cm left ovary with estimated volume 9.2 cc. Intraperitoneal space: No intraperitoneal fluid. Urinary bladder: Normal. Other findings: Minimal bilateral adnexal and posterior cul-de-sac fluid which is within normal limits for a female. US/US pelvic with transvaginal IMPRESSION: 1. Normal ovarian perfusion bilaterally with no torsion. 2. Minimal nonspecific fluid in the endocervical canal.
[2022-02-14 16:51] LABS: HCG Qualitative Urine. Negative (Negative)
--- NOTE | 2022-02-14 17:00 | ED_ITS ---
HPI - Abdominal Pain General: Chief Complaint: Abdominal Pain Stated Complaint: low abd pain Time Seen by Provider: 02/14/22 16:37 Source: patient History of Present Illness: 21-year-old female presents emergency room with complaints of left pelvic pain that began last night. She has had problems with ovarian cyst in the past she feels like she is having a cyst again. She has some cramping she denies any dysuria urgency or frequency no abnormal vaginal bleeding she denies a potential that she is . No vomiting no diarrhea. No upper abdominal pain. MD elicited complaint: abdominal pain Onset (ago): day(s) Pain Consistency: intermittent Location: LLQ (Left pelvis) Quality: cramping Radiation: none Migration to: no migration Exacerbating factors: nothing Relieving factors: nothing Associated Symptoms: Reports GI cramping; Denies anorexia, belching, bloating, change in bowel habits, change in stool character, chills, coffee ground emesis, constipation, diarrhea, dyspepsia, dysuria, excessive flatus, fever(s), heartburn, hematochezia, hematuria, hematemesis, fecal incontinence, loose stools, melena, nausea, poor appetite, syncope and vomiting Related Data: Date of Last Menstrual Period: 01/30/22 Review of Systems Const: Denies: fever(s) or chills ENMT: Denies: throat pain, ear or mastoid pain, nasal discharge or nasal congestion Card: Denies: syncope Resp: Denies: dyspnea, productive cough or non-productive cough GI: Reports: abdominal pain and GI cramping; Denies: nausea, vomiting, hematemesis, coffee ground emesis, heartburn, diarrhea, constipation, bloating, belching, excessive flatus, fecal incontinence, change in bowel habits, change in stool character, hematochezia or melena : Denies: flank pain, difficulty voiding, dysuria, urinary frequency, urinary urgency or hematuria Skin/Breast: Denies: rash or pruritus PFSH ED PFSH: Medical History Asthma Generalized anxiety disorder with panic attacks No pertinent past medical history neghx: htn,dm,thyroid,dvt/pe PCP: Dr. Ospina Surgical History H/O esophagogastroduodenoscopy (01/09/21) History of appendectomy History of tonsillectomy Status post laparoscopic cholecystectomy (01/09/21) Family History Mother Hypertension Grandmother Breast cancer Paternal--dx age unknown Denies family history of Colon cancer Ovarian cancer Diabetes Hypercholesteremia Uterine cancer Thyroid disease Stroke Social History Smoking and tobacco status: current every day smoker (using a vape pen daily) Female Reproductive History: Date of last menstrual period: 01/30/22 Physical Exam Const: GENERAL APPEARANCE: cooperative and comfortable ORIENTATION/CONSCIOUSNESS: Yes awake, Yes oriented to person, Yes oriented to place and Yes oriented to time HENMT: COMMON NORMALS: normocephalic, atraumatic and hearing grossly normal bilaterally HEAD & SCALP: normocephalic and atraumatic Resp: COMMON NORMALS: normal respiratory effort, No retractions, No use of accessory muscles and clear to auscultation bilaterally AUSCULTATION: clear to auscultation bilaterally Cardio: COMMON NORMALS: regular rate, regular rhythm and No murmurs present (Cardio) RATE: regular rate RHYTHM: regular rhythm GI: COMMON NORMALS: Soft to palpation and No hepatosplenomegaly present AUSCULTATION: Yes normoactive bowel sounds PALPATION: Yes Soft to palpation, No Tenderness to palpation present (GI), No Guarding due to palpation present (GI) and Yes No hepatosplenomegaly present Extremity: COMMON NORMALS: normal to inspection, capillary refill normal, no clubbing, cyanosis or edema, no calf tenderness and no pedal edema Neuro: SENSORIUM/ORIENTATION: Yes oriented to person, Yes oriented to place and Yes oriented to time Skin: COMMON NORMALS: no rashes or lesions noted GENERAL SKIN EXAM: no rashes or lesions noted Course Vital Signs: Vital signs: Vital Signs Temperature 97.8 F 02/14/22 16:20 Pulse Rate 88 02/14/22 16:20 Respiratory Rate 15 02/14/22 16:20 Blood Pressure 118/75 02/14/22 16:20 Pulse Oximetry 98 02/14/22 16:20 Oxygen Delivery Me thod 02/14/22 16:20 MDM - Abdominal Pain Medical Decision Making Labs and imaging reviewed with the patient. Ultrasound does not show any significant abnormalities of fluid in the endocervical canal suspect she may menses. Can use anti-inflammatories. If symptoms persist follow-up with her primary care doctor or gynecology. At this point patient is not and there is no sign of any acute intra-abdominal pathology and the pelvic ultrasound that shows good blood flow to both ovaries. No evidence of cystitis. Medical Records I reviewed the patient's medical records. Lab Data I reviewed the patient's lab results. Labs/Radiology: Radiology Impressions Pelvic/Transvag US 02/14/22 16:37 IMPRESSION: 1. Normal ovarian perfusion bilaterally with no torsion. 2. Minimal nonspecific fluid in the endocervical canal. Laboratory Results HCG, Qual Negative (Negative) 02/14/22 16:45 Urine Color Yellow (Yellow) 02/14/22 16:45 Urine Appearance Clear (CLEAR) 02/14/22 16:45 Urine pH 7 (5-7) 02/14/22 16:45 Ur Specific [place] 1.020 (1.005-1.030) 02/14/22 16:45 Urine Protein Neg (Negative) 02/14/22 16:45 Urine Glucose (UA) Norm (Normal) 02/14/22 16:45 Urine Ketones Negative (Negative) 02/14/22 16:45 Urine Blood Neg (Negative) 02/14/22 16:45 Urine Nitrate Negative (Negative) 02/14/22 16:45 Urine Bilirubin Neg (Negative) 02/14/22 16:45 Urine Urobilinogen Norm mg/dL (Negative) 02/14/22 16:45 Ur Leukocyte Esterase Trace (Negative) H 02/14/22 16:45 Urine RBC 0-4 /hpf (0-2) H 02/14/22 16:45 Urine WBC 5-10 /hpf (0-5) H 02/14/22 16:45 Ur Squamous Epith Cells 10-15 /hpf (0-5) H 02/14/22 16:45 Amorphous Sediment Not Reportable 02/14/22 16:45 Urine Bacteria 1+ /hpf (NONE) H 02/14/22 16:45 Discharge Plan Discharge Patient Disposition: Home Clinical Impression: Pelvic pain Condition: Stable Prescriptions: New diclofenac sodium 75 mg tablet,delayed release (DR/EC) 75 mg PO Q12H PRN (Reason: pain) Qty: 20 0RF Discharge Orders: Discharge ED (Routine); Ordered 02/14/22 Ordered By: Clayton Lazaro Referrals: Andreia Ospina DO [Primary Care Provider] - Patient Instructions: Opioid Safety, Pain Management Coding Level of Care Code ED Manager Corporate Communications for Chg Fwd Exam Detailed
[2022-02-14 17:12] LABS: Add Urine Microscopic? YES; Bilirubin Urine Neg (Negative); Blood Urine Neg (Negative); Glucose Urine UA Norm (Normal); Ketones Urine Negative (Negative); Leukocyte Esterase Urine Trace (Negative); Nitrate Urine Negative (Negative); Protein Urine Neg (Negative); Urine Appearance Clear (CLEAR); Urine Color Yellow (Yellow); Urobilinogen Urine Norm (Negative); pH Urine 7 (5-7)
[2022-02-14 17:21] LABS: Add Urine Culture? No; Bacteria Urine 1+ /hpf; RBC Urine 0-4 /hpf (0-2)
== END 2022-02-14 18:25 | disposition home or self-care (01) ==
PROVIDERS: Emergency Medicine; Emergency Provider Family Medicine; PCP Family Medicine
DX: R10.2 Pelvic and perineal pain (principal); F17.290 Nicotine dependence, other tobacco product, uncomplicated
CPT/HCPCS: 76830; 76856; 81001; 81025; 99284

== ENCOUNTER 2022-03-29 18:15 | Emergency (ER) | payer MEDICAID, SELFPAY ==
[2022-03-29 18:32] VITALS: BP 116/78; PULSE 87; RESP 13; TEMP 36.5; O2SAT 97; BMI 34.3
--- NOTE | 2022-03-29 19:07 | XRR_ITS ---
PROCEDURE INFORMATION: Exam: XR Right Hand Exam date and time: 03/29/2022 8:28 PM Age: 21 years old Clinical indication: Injury or trauma; Other: Smash injury; Crushing; Right; Index finger and middle finger and ring finger; Additional info: Fingers caught in door TECHNIQUE: Imaging protocol: Radiologic exam of the Right hand. Views: 3 or more views. COMPARISON: No relevant prior studies available. FINDINGS: Bones/joints: No acute fracture or dislocation is noted. The skeletal structures seem age-appropriate. Soft tissues: Unremarkable. XR/XR hand RT min 3V* [id number] IMPRESSION: No acute findings.
[2022-03-29] MEDS: HYDROcodone-acetaminophen 7.5-325 mg Tablet 1 TAB PO (20:37)
--- NOTE | 2022-03-29 20:40 | W.ED.EXTPRO ---
HPI - Extremity Problem General: Chief complaint: Extremity Injury, Upper Stated complaint: Right hand injury Time Seen by Provider: 03/29/22 20:11 History of Present Illness: Patient is a 21-year-old female comes to the ED with right hand finger injury. Patient says injury occurred just prior to arrival. She was closing a garage door and it pinched her second, third and fourth digits and garage door. Her distal end of fingers were caught in garage door. She now has 8 out of 10 pain in her fingers and it hurts for her to move them. Denies any bleeding or any other injury. She took a dose of Tylenol before coming to the ED. Associated symptoms: Deny chest pain, fever(s) or rash Review of Systems Const: Denies: fever(s), chills or fatigue Eyes: Denies: change in vision or eye discomfort ENMT: Denies: throat pain, odynophagia, nasal discharge or nasal congestion Card: Denies: chest pain, palpitations, edema, swelling of feet/ankles, dyspnea on exertion or orthopnea Resp: Denies: dyspnea, productive cough or non-productive cough GI: Denies: abdominal pain, nausea, vomiting, diarrhea, constipation or hematochezia : Denies: flank pain, dysuria or hematuria Musc: Reports: extremity pain (Right distal fingers second, third and fourth digit); Denies: neck pain, back pain or extremity swelling Skin/Breast: Denies: rash or new lesions Neuro: Denies: headache(s), numbness in extremities or weakness in extremities PFS ED PFSH: Medical History Asthma Generalized anxiety disorder with panic attacks No pertinent past medical history neghx: htn,dm,thyroid,dvt/pe PCP: Dr. Ospina Surgical History H/O esophagogastroduodenoscopy (01/09/21) History of appendectomy History of tonsillectomy Status post laparoscopic cholecystectomy (01/09/21) Family History Mother Hypertension Grandmother Breast cancer Paternal--dx age unknown Denies family history of Colon cancer Ovarian cancer Diabetes Hypercholesteremia Uterine cancer Thyroid disease Stroke Social History Smoking and tobacco status: current every day smoker (using a vape pen daily) Female Reproductive History: Date of last menstrual period: 01/30/22 Physical Exam Const: COMMON NORMALS: patient oriented x3 HENMT: COMMON NORMALS: normocephalic HEAD & SCALP: normocephalic MOUTH: Normal oral and palatal mucosa present THROAT: posterior oropharynx normal and uvula midline Neck/C-Spine: COMMON NORMALS: supple GENERAL: Yes normal visual inspection Resp: COMMON NORMALS: normal respiratory effort, No retractions, No use of accessory muscles and clear to auscultation bilaterally AUSCULTATION: clear to auscultation bilaterally Cardio: COMMON NORMALS: regular rate, regular rhythm, S1 normal heart sound present, S2 normal heart sound present, No gallops present (Cardio), No clicks present (Cardio), No murmurs present (Cardio) and Peripheral pulses 2+ throughout RATE: regular rate RHYTHM: regular rhythm HEART SOUNDS: S1 normal heart sound present and S2 normal heart sound present PERIPHERAL PULSES: Peripheral pulses 2+ throughout GI: COMMON NORMALS: Normal to inspection, nondistended, normoactive bowel sounds present, Soft to palpation, non-tender and no masses PALPATION: Yes Soft to palpation : COMMON NORMALS: Yes no CVA tenderness BLADDER/KIDNEY EXAM: Yes no CVA tenderness Back/Pelvis: COMMON NORMALS: no CVA tenderness Extremity: COMMON NORMALS: normal to inspection NARRATIVE EXTREMITY EXAM: Right hand?distal fingers second, third and fourth digit. No laceration or subungual hematoma noted. No deformity or swelling seen. Tenderness to distal aspect of fingers. Neurovascular intact distally. Neuro: COMMON NORMALS: patient oriented x3 GAIT: Yes Normal gait present Skin: GENERAL SKIN EXAM: dry skin Course Vital Signs: Vital signs: Vital Signs Temperature 97.7 F 03/29/22 18:32 Pulse Rate 87 03/29/22 18:32 Respiratory Rate 16 03/29/22 21:10 Blood Pressure 116/78 03/29/22 18:32 Pulse Oximetry 97 03/29/22 18:32 Oxygen Delivery Me thod 03/29/22 18:32 MDM - Extremity (Nontraumatic) Medical Decision Making Patient is a 21-year-old female comes to the ED with right hand finger injury. Patient says injury occurred just prior to arrival. She was closing a garage door and it pinched her second, third and fourth digits and garage door. Her distal end of fingers were caught in garage door. Vitals are stable. Patient appears in no acute distress or pain. Right hand shows no visible deformities and no subungual hematomas noted. She has some tenderness over the distal aspect of second third and fourth digits on right hand. Neurovascular intact distally. X-ray of right hand showed no acute fractures or findings. Patient was diagnosed with contusion of fingers and was stable for discharge home. Sent home with a prescription for ibuprofen 600 mg. Follow-up with PCP in the next week for reevaluation. Patient understood and agreed with plan. Lab Data Radiology Impressions Hand X-Ray 03/29/22 19:07 IMPRESSION: No acute findings. Discharge Plan Discharge Patient Disposition: Home Clinical Impression: Contusion, fingers Qualifiers: Encounter type: initial encounter Finger: middle finger Damage to nail status: without damage Laterality: left Qualified Code(s): S60.032A - Contusion of left middle finger without damage to nail, initial encounter Condition: Stable Prescriptions: New ibuprofen 600 mg tablet 600 mg PO Q8H PRN (Reason: pain) Qty: 20 0RF No Action diclofenac sodium 75 mg tablet,delayed release (DR/EC) 75 mg PO Q12H PRN (Reason: pain) Qty: 20 0RF Discharge Orders: Discharge ED (Routine); Ordered 03/29/22 Ordered By: Kyle Coronado Referrals: Andreia Ospina DO [Primary Care Provider] - Discharge Diet: Regular Discharge Activity: Increase activity as tolerated Activity Restrictions/Additional Instructions: Follow-up with medical provider as directed for the next 5 to 7 days reevaluation. Continue applying cold pack on fingers to help with swelling multiple times a day for 10 to 15 minutes at a time. Take medications as prescribed. Return to the ER or your medical provider if condition worsens. Please read and understand discharge instructions. Thank you for choosing [facility] for your healthcare needs today. Please realize this is an emergency room and that we are providing you with a medical screening exam and this may not be complete and all inclusive of all the testing and or work up that you may need to determine your ailment or severity of your illness. It is very important that you follow up as instructed or that you return to the Emergency Department should you have concerns or if your condition changes or worsens in any way. Coding Level of Care Code ED Manager Test for Kameron Tompkins Exam Comprehensive
[2022-03-29 21:10] VITALS: RESP 16
== END 2022-03-29 21:10 | disposition home or self-care (01) ==
PROVIDERS: Emergency Provider Physician Assistant; PCP Family Medicine
DX: S60.032A Contusion of left middle finger without damage to nail, initial encounter (principal); F17.290 Nicotine dependence, other tobacco product, uncomplicated; W23.0XXA Caught, crushed, jammed, or pinched between moving objects, initial encounter
CPT/HCPCS: 73130; 99283

== ENCOUNTER → 2022-05-08 16:10 | Outpatient (BNVA) | payer MEDICAID, SELFPAY | PROVIDERS: PCP Family Medicine; Visit Provider Obstetrics & Gynecology | DX: Z01.419 Encounter for gynecological examination (general) (routine) without abnormal findings (principal); Z86.39 Personal history of other endocrine, nutritional and metabolic disease | CPT/HCPCS: 83036; 83525; 84443; 88175 ==

== ENCOUNTER → 2022-05-14 13:50 | Outpatient (BNVA) | payer MEDICAID, SELFPAY | PROVIDERS: PCP Family Medicine; Visit Provider Registered Nurse Neonatal Intensive Care | DX: N39.0 Urinary tract infection, site not specified (principal); J06.9 Acute upper respiratory infection, unspecified; J02.9 Acute pharyngitis, unspecified; B96.89 Other specified bacterial agents as the cause of diseases classified elsewhere; N76.0 Acute vaginitis | CPT/HCPCS: 81000; 87071; 87086; 87880 ==

== ENCOUNTER → 2022-09-21 11:32 | Outpatient (BNVA) | payer MEDICAID, SELFPAY | PROVIDERS: PCP Family Medicine; Visit Provider Emergency Medicine | DX: J02.9 Acute pharyngitis, unspecified (principal); J02.0 Streptococcal pharyngitis | CPT/HCPCS: 87071; 87880 ==

== ENCOUNTER → 2023-03-21 11:38 | Outpatient (BNVA) | payer MEDICAID, SELFPAY | PROVIDERS: PCP Family Medicine; Visit Provider Emergency Medicine | DX: S91.351A Open bite, right foot, initial encounter (principal); W54.0XXA Bitten by dog, initial encounter | CPT/HCPCS: 73630 ==

== ENCOUNTER → 2023-04-12 11:28 | Outpatient (BNVA) | payer MEDICAID, SELFPAY | PROVIDERS: PCP Family Medicine; Visit Provider Family Medicine | DX: J02.9 Acute pharyngitis, unspecified (principal) | CPT/HCPCS: 87880 ==

== ENCOUNTER → 2023-04-23 18:17 | Outpatient (BNVA) | payer OTHER, MEDICAID, SELFPAY | PROVIDERS: PCP Family Medicine; Visit Provider Registered Nurse Neonatal Intensive Care | DX: R09.81 Nasal congestion (principal) | CPT/HCPCS: 87400; 87426 ==

== ENCOUNTER → 2023-06-22 12:55 | Outpatient (BNVA) | payer OTHER, MEDICAID, SELFPAY | PROVIDERS: PCP Family Medicine; Visit Provider Registered Nurse Neonatal Intensive Care | DX: R39.9 Unspecified symptoms and signs involving the genitourinary system (principal) | CPT/HCPCS: 81000 ==